=== PATIENT | female | born 1935 | race Caucasian/White ===

== ENCOUNTER 2016-08-07 11:40 | Inpatient (IN) | payer MEDICARE ==
[~2016-08-07] VITALS: Ht 160 cm; Wt 87.2 kg
[2016-08-07] MEDS ORDERED: PERCOCET 5MG/325MG TAB PO PRN (13:30)
[2016-08-07] MEDS ORDERED: ACETAMINOPHEN TAB 650MG DOSE (2X325MG) PO PRN (13:30)
[2016-08-07] MEDS ORDERED: ONDANSETRON 4MG/2ML VIAL (J2405) IV PRN (13:30)
[2016-08-07] MEDS ORDERED: BISACODYL 10 MG SUPP PR PRN (13:30)
[2016-08-07] MEDS ORDERED: LEVALBUTEROL 1.25 MG/0.5 ML CONCENTRATE NEB NEB PRN (13:30)
[2016-08-07 16:42] VITALS: BP 140/90
[2016-08-07 17:06] LABS: BASO % 0.3 % (0.0-1.0); EOS # 0.2 K/mm3 (0.0-0.50); EOS % 1.4 % (0.0-3.0); LARGE UNSTAINED CELL # 0.1 K/mm3 (0.0-0.4); LARGE UNSTAINED CELL % 0.9 % (0.0-4.0); LYMPH % 28.2 % (24.0-44.0); MEAN CORPUSCULAR HEMOGLOBIN 31.5 pg (27.0-33.0); MEAN CORPUSCULAR HGB CONC 33.2 g/dl (32.0-36.5); MEAN CORPUSCULAR VOLUME 94.9 fl (80.0-96.0); MONO # 0.3 K/mm3 (0.0-0.8); MONO % 2.4 % (0.0-5.0); NEUTROPHILS % 66.7 % (36.0-66.0); PLATELET COUNT, AUTOMATED 348 k/mm3 (150-450); RED CELL DISTRIBUTION WIDTH 12.5 % (11.5-14.5); WHITE BLOOD COUNT 10.5 K/mm3 (4.0-10.0)
[2016-08-07] MEDS ORDERED: FLUMAZENIL 0.5 MG/5 ML VIAL As Ordered ONE (17:06)
[2016-08-07] MEDS ORDERED: LIDOCAINE 1% MDV 20ML VIAL As Ordered ONE (17:07)
[2016-08-07] MEDS ORDERED: MIDAZOLAM INJ 2 MG/2 ML VIAL (J2250) As Ordered ONE (17:08)
[2016-08-07 17:19] LABS: ANION GAP 9 MEQ/L (8-16); BLOOD UREA NITROGEN 19 MG/DL (7-18); CARBON DIOXIDE LEVEL 26 MEQ/L (21-32); CHLORIDE LEVEL 103 MEQ/L (98-107); CREATININE FOR GFR 0.87 MG/DL (0.55-1.02); GLOMERULAR FILTRATION RATE > 60.0 (>39); GLUCOSE, FASTING 117 MG/DL (83-110); POTASSIUM SERUM 4.2 MEQ/L (3.5-5.1); SODIUM LEVEL 138 MEQ/L (136-145)
[2016-08-07 18:10] LABS: ABG BASE EXCESS 1.4 (-2.0-2.0); ABG HCO3 24.3 MEQ/L (22.0-26.0); ABG PARTIAL PRESSURE CO2 33.5 mmHg (35.0-45.0); ABG PARTIAL PRESSURE O2 65.2 mmHg (75.0-100.0); ABG STANDARD HCO3 25.6 MEQ/L (22.0-26.0); ABG TOTAL CO2 25.4 MEQ/L (23.0-31.0); ABG pH (ARTERIAL) 7.479 UNITS (7.350-7.450)
[2016-08-07] MEDS: PANTOPRAZOLE 40MG TAB (PROTONIX) PO SCH (18:27)
[2016-08-07] MEDS: MOM 30ML SUSPENSION UDC PO SCH (18:27)
[2016-08-07] MEDS ORDERED: LISI40TAB PO (18:58)
[2016-08-07 19:13] VITALS: BP 135/85
--- NOTE | 2016-08-07 19:16 | HPE ---
DATE OF ADMISSION: 08/07/2016 The patient is accepted in transfer from [facility] at the request at Dr. Quinton Grajeda for a continued air leak after a spontaenous pneumothorax. HISTORY OF PRESENT ILLNESS: Patient is a 80-year-old white female who on 07/31 or had a sudden onset of paroxysmal coughing spell which then resulted in sudden shortness of breath and chest discomfort. She presented to [facility] where she was a tension pneumothorax and a chest tube was placed by the physician certified pathology assistant. I do not have the records from [facility] so I can not comment on whether it was a true tension pneumothorax with hypertension or not. She however was then transferred to [facility] where the chest tube either fell out, but for some reason needed a replacement perhaps secondary to misplacement. A posterior lateral chest tube was then placed and aimed toward the apex. Shortly after replacing the chest tube the patient reports swelling up. She had an evidently severe subcutaneous emphysema. Dr. Rae, of Pulmonology was called and referred the phone call to me and in speaking to Dr. Grajeda, he related to me the above events. The chest tube has been continued on suction and while the subcutaneous emphysema has gotten somewhat better she still has a continued air leak. Prior to the coughing paroxysm, she had some shortness of breath walking up a long hill but was able to do all of the activities of daily living. She has gained weight rather than lost weight. There has been no chest pain or chest discomfort prior to the pneumothorax. There has been no fevers, chills, or sweats but she does complain sometimes of night sweats occasionally. She says that she has nose bleeds sometimes once or twice a week for quite a number or years. They spontaneously stop. She is no on oxygen at home. She did have a couple of nose bleeds while at [facility]. There is no hemoptysis and with her cough she has no sputum production. She does have a [id number] history of smoking, having quit in 1991 but smoked 2 packs a day for 30 years, Pall [employer] cigarettes. She has had diarrhea also for most of her life. It is brought on it sounds like with eggs but not with bread of carbohydrates. There is no melena or hematochezia or nausea or vomiting. PAST MEDICAL ILLNESSES: Hypertension for which she takes lisinopril. PAST SURGICAL HISTORY: Remote cholecystectomy, appendectomy and hysterectomy. MEDICATIONS AT HOME: Include: - lisinopril 10 mg every day TRAVEL HISTORY: She has traveled to [place] but not to the [facility] [place] and there is no other foreign travel. EXPOSURES: She has three cats at home. No dogs or birds. There is no tuberculosis exposure that she knows of. OCCUPATIONAL HISTORY: She used to work for [employer] in the [email or web address]. No asbestos exposure. HABITS: As noted above, 2 packs per day, Pall [employer] for 30 years, quit in 1991. Drinks 2-3 beers every Friday. No elicit drugs. FAMILY HISTORY: Noncontributory at this point and time. To be determined at a later time. REVIEW OF SYSTEMS: CONSTITUTIONAL: See history of present illness, without fevers, chills, or sweats but does have occasional night sweats. No weight loss but rather weight gain. EYES: Without diplopia or transient binocular blindness without prior jaundice. NOSE: With the above history of epistaxis. MOUTH: Has partial plates. PULMONARY: See history of present illness. CARDIAC: See history of present illness. Without orthopnea or paroxysmal nocturnal dyspnea, prior myocardial infarction without peripheral edema or intermittent claudication. GASTROINTESTINAL (GI): See history of present illness. Without nausea, vomiting, but with diarrhea as described above. Without constipation, melena, hematochezia, hematemesis or abdominal pain. ENDOCRINE: With diabetes, without thyroid disease. NEUROLOGIC: Without paralysis, paraesthesias, or prior seizures. LYMPHATICS: Without lumps, bumps that she has noticed in her neck, groin, or axilla. HEMATOLOGIC: Without prolonged bleeding times. PSYCHIATRIC: Without pathologic anxieties, depression or psychosis. PHYSICAL EXAMINATION: GENERAL: A well developed, overweight, white female in no acute distress. She has a chest tube in place and it is connected to a Pleur-evac at 27 cm of suction from [employer]. VITAL SIGNS: Temperature is 97.8, pulse 104 in sinus rhythm, respiratory rate of 19 without the use of accessory muscles who is 93% saturated on room air. Her blood pressure of 140/90. EYES: Pupils equal, round and reactive to light. Extraocular movement intact. Sclera anicteric. NOSE: Without deformity. MOUTH: Shows her mucous membranes to be pink and moist. Lips and commissures without lesions. There is no thrush. Partial plates are in place. Teeth are in fairly good repair. NECK: Shows subcutaneous emphysema but up to and past the angle of the jaw and into the facial mandible. There is no jugular venous distention. No is no thyromegaly or lymphadenopathy that I can feel through the subcutaneous emphysema. She has 2+ carotid upstrokes and there is no carotid bruits. LUNGS: Show equal breath sounds on either side. I do her a preponderance of crackles of subcutaneous emphysema but beneath those there are some squeaks on the right side from the chest tube. I heart no underlying adventitious sounds. Percussion was hyperresonant on both side, more on the right than the left from the subcutaneous emphysema. CARDIAC: Without murmurs, clicks, gallops, or rubs. I can not feel her point maximum intensity (PMI). S1 and S2 are normal. ABDOMEN: Soft, nontender. Bowel sounds are positive. There is no hepatomegaly. No CVA tenderness. EXTREMITIES: Show no pretibial edema. No calf tenderness. There is differential swelling of the two upper extremities secondary to subcutaneous emphysema but there is no edema. She has rings on both fingers and the rings move freely. LYMPHATICS: Without supraclavicular or infraclavicular cervical or axillary lymphadenopathy. NEURO: Shows II through XII intact. Gross motor and gross sensation intact. Gait is not tested. PSYCHIATRIC: Shows her to be awake and alert, oriented times three with appropriate mood and affect and conversational. INVESTIGATIONS: Her white count is 10.5 with a hemoglobin and hematocrit report respectively. Platelet count 348 and her differential shows 66 neurtophils, 28% lymphocytes, 2% monocytes. There are no immature forms or toxic grandulations. Her blood gases are pending. Electrolytes are normal with a BUN and creatinine of 19 and 0.87. Glucose 11 and calcium 9.0. I did have a chest CT done immediately upon arrival. It shows massive amount of subcutaneous emphysema which is certainly evident on physical examination. The lung parenchyma is surprisingly intact. I do not see a lot of emphysematous changes. On the coronal views there does look to be a bleb at the very apex of the cupula. The chest tube is in actually fairly good position but does not get all the way up to the cupula. It does not look to be a parenchymal tube. It enters through the 5th intercostal space over the 6th rib. There is a small air space best seen on the sagittal view at the cupula. It is notable on the sagittal view that she has more emphysematous changes than I see on the transverse view. On the sagittal view, the small air space at the cupula is clearly seen. The chest tube does not get up into that air space. The chest tube does seem to be ending at the tissue at the first intercostal space. It does look like there is a small maybe hematoma at the end of the chest tube although that is a very equivocal finding. There also is an unexplained opacity on the sagittal film which is probably just mediastinal tissue with mediastinal air. Her chest x-ray is still pending as her blood gases. IMPRESSION: 1. Spontaneous pneumothorax. 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 3. Mild emphysematous changes. 4. Hypertension. 5. Alveolar pleural fistula. PLAN AND DISCUSSION: I will replace the chest drainage system from [place] and put her on a Pleur-evac that I can turn up to 40 cm of suction. We will keep her on suction for the next couple of days to see if I can get the air leak to stop. She may need another anterior chest tube right into the cupula. At the end of the day the worst case scenario is that I will have to undertake a bleb resection with a pleurodesis. I explained to the patient that I have used my last talc canister and there is a national backlog and shortage of talc. I may need to use doxycycline or mechanical pleurodesis. She is having very little pain at the chest tube insertion site and I will not place her on Toradol at this point and time.
--- NOTE | 2016-08-07 19:32 | REP ---
CT CHEST WITHOUT CONTRAST: HISTORY: Pneumothorax. Diffuse subcutaneous emphysema is present through the thorax. There is pneumomediastinum. Patchy density is present in the lingula and left lower lobe consistent with atelectasis or infiltrate. The right lung is clear. A chest tube is present in the right hemithorax. There is no pneumothorax. Atherosclerotic calcification is present in the thoracic aorta. 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 Degenerative change is present in the thoracic spine. IMPRESSION: 1. There is diffuse subcutaneous emphysema throughout the thorax. 2. Pneumomediastinum. 3. Lingular and left lower lobe atelectasis or infiltrate. 4. A right chest tube is present. There is no pneumothorax. Signed by Niraj Nielson MD 08/07/2016 07:40 P
[2016-08-07] MEDS: DOCUSATE SODIUM 100 MG CAP PO SCH (20:12)
[2016-08-07] MEDS: HEPARIN SOD (PORCINE) 5000 UNITS/ML VIAL SC SCH (20:13)
[2016-08-07] MEDS: LEVALBUTEROL 1.25 MG/0.5 ML CONCENTRATE NEB NEB SCH (20:34)
[2016-08-07 23:00] VITALS: BP 79/53
[2016-08-07 23:25] VITALS: BP 114/63
[2016-08-07] MEDS: NORCO, ANEXSIA 5/325MG TABLET (HYDROcodone/ACETAMINOPHEN) PO PRN (23:30)
[2016-08-08] MEDS: LEVALBUTEROL 1.25 MG/0.5 ML CONCENTRATE NEB NEB SCH ×4 (01:51→21:33)
[2016-08-08] MEDS: NORCO, ANEXSIA 5/325MG TABLET (HYDROcodone/ACETAMINOPHEN) PO PRN (03:35)
[2016-08-08 04:00] VITALS: BP 123/77
[2016-08-08 06:12] LABS: BASO % 0.2 % (0.0-1.0); EOS # 0.2 K/mm3 (0.0-0.50); EOS % 1.9 % (0.0-3.0); LARGE UNSTAINED CELL # 0.1 K/mm3 (0.0-0.4); LARGE UNSTAINED CELL % 1.4 % (0.0-4.0); LYMPH # 3.2 K/mm3 (1.5-4.5); LYMPH % 31.5 % (24.0-44.0); MEAN CORPUSCULAR HEMOGLOBIN 31.3 pg (27.0-33.0); MEAN CORPUSCULAR HGB CONC 32.8 g/dl (32.0-36.5); MEAN CORPUSCULAR VOLUME 95.6 fl (80.0-96.0); MONO # 0.3 K/mm3 (0.0-0.8); MONO % 2.7 % (0.0-5.0); NEUTROPHILS # 6.4 K/mm3 (1.8-7.7); NEUTROPHILS % 62.4 % (36.0-66.0); PLATELET COUNT, AUTOMATED 285 k/mm3 (150-450); RED CELL DISTRIBUTION WIDTH 12.6 % (11.5-14.5); WHITE BLOOD COUNT 10.2 K/mm3 (4.0-10.0)
[2016-08-08 06:13] LABS: ANION GAP 9 MEQ/L (8-16); BLOOD UREA NITROGEN 21 MG/DL (7-18); CALCIUM LEVEL 8.4 MG/DL (8.8-10.2); CARBON DIOXIDE LEVEL 27 MEQ/L (21-32); CHLORIDE LEVEL 104 MEQ/L (98-107); CREATININE FOR GFR 0.78 MG/DL (0.55-1.02); GLOMERULAR FILTRATION RATE > 60.0 (>39); GLUCOSE, FASTING 103 MG/DL (83-110); POTASSIUM SERUM 4.1 MEQ/L (3.5-5.1); SODIUM LEVEL 140 MEQ/L (136-145)
[2016-08-08 07:50] VITALS: BP 128/62
[2016-08-08] MEDS: HEPARIN SOD (PORCINE) 5000 UNITS/ML VIAL SC SCH ×2 (08:13→20:23)
[2016-08-08] MEDS: PANTOPRAZOLE 40MG TAB (PROTONIX) PO SCH (08:14)
[2016-08-08] MEDS: PERCOCET 5MG/325MG TAB PO PRN ×2 (08:14→20:24)
[2016-08-08] MEDS: LISINOPRIL 40 MG TAB PO SCH (08:14)
[2016-08-08] MEDS: MOM 30ML SUSPENSION UDC PO SCH (08:15)
[2016-08-08] MEDS: DOCUSATE SODIUM 100 MG CAP PO SCH ×2 (08:15→20:22)
--- NOTE | 2016-08-08 08:45 | REP ---
CHEST, TWO VIEWS: HISTORY: Pneumothorax. Diffuse subcutaneous emphysema is present in the thorax. Increased density is present in the left lower lobe consistent with atelectasis or infiltrate. A chest tube is present in the right hemithorax. There is no definite pneumothorax. The heart is normal in size. The bony structure is intact. IMPRESSION: 1. There is diffuse subcutaneous emphysema in the thorax. 2. Left lower lobe atelectasis or infiltrate. 3. A chest tube is present in the right hemithorax. There is no definite pneumothorax. Signed by Niraj Nielson MD 08/08/2016 08:51 A
[2016-08-08 12:00] VITALS: BP 115/52
[2016-08-08 16:00] VITALS: BP 120/68
--- NOTE | 2016-08-08 16:43 | IPN ---
DATE: 08/08/2016 Ms. Izaguirre still has a considerable air leak, keeping her on 40 cm of suction. She still has her subcutaneous emphysema. It is clear that this air leak has been going on for over a week and is not going to stop. Please see discussion below. Her vital signs show a maximum temperature (T max) of 98.7 with a heart rate that ranges between 70 and 104 and is sinus rhythm, a respiratory rate of 18 to 16 without the use of accessory muscles who is 96% saturated on room air and whose blood pressure is ranging between 128/62 to 115/52. Her intake and output the past 24 hours has been recorded as 1680 in and 1305 out for a positivity of 375 mL. She has put out 30 mL from the chest tube. PHYSICAL EXAMINATION: I hear the crackles of subcutaneous emphysema over her right chest. Underneath I hear normal vesicular sounds without wheezes, rhonchi or rales. I do hear the squeaking of the chest tube on 40 cm of suction. Percussion note is full to the diaphragm. It is hyperresonant, particularly on the right side. Cardiac exam is without murmurs, clicks, gallops or rubs. I cannot feel her point of maximum impulse (PMI). S1, S2 are normal. Abdomen is soft and nontender. Bowel sounds are positive. There is no hepatomegaly. No costovertebral angle tenderness. Extremities show no pretibial edema. No calf tenderness. No differential swelling of the upper extremities. Skin is warm, dry and perfused without cyanosis or mottling, including that of the nail beds and the knees. Neck is supple. There is no jugular venous distention, no subcutaneous emphysema. Trachea is midline. Mouth shows her mucous membranes to be pink and moist. Lips and commissures without lesions. There is no thrush. Eyes show her pupils to be equal and reactive. Extraocular motions intact. Sclerae anicteric. Neurologic shows II-XII intact along with gross motor and gross sensation intact. Gait is not tested. Psychiatric shows her to be awake and alert, oriented times three with appropriate mood and affect and conversational. Her white count today is 10.2, unchanged from yesterday with a hemoglobin and hematocrit of 13 and 39.7, slightly down from 14.8 and 44.4 yesterday. This can be explained by mild hemodilution. Platelet count is 285 and differential shows 62% neutrophils, 31% lymphocytes, 2% monocytes. There are no immature forms. No toxic granulations. Electrolytes are normal with a BUN and creatinine of 21 and 0.78, a glucose of 103 and a calcium of 8.4. Her chest x-ray today shows the lung fully expanded to the chest wall with dissipating subcutaneous emphysema. She has increased colonic gas beneath the diaphragm on the right side. Trachea is in the midline as is the mediastinum. Chest tube looks to be in place anteriorly. IMPRESSION: 1. Spontaneous pneumothorax. 2. Bleb disease. 3. Alveolar pleural fistula. 4. Mild emphysematous changes. 5. Hypertension. PLAN AND DISCUSSION: We really are between a rock and a hard place at this point in time. There is no talc available anywhere in the country. I even, in fact, called the door frame builder today and they returned my call. They have explained that the canister that used to deliver the talc is no longer manufactured by their prior supplier and the new canister has to be approved by the Food and Drug Administration, which is taking an extraordinary amount of time. We are, therefore, stuck with doing it the old-fashioned way with doxycycline, and I will combine that with a mechanical talc pleurodesis. We will undertake a wedge resection of the upper lobe where I think that she has her open bleb. Plan to take her to the operating room tomorrow. This will be more than a small thoracoscopic procedure and may need some extra additional incisions to place the abrasive sponges in to scarify the pleura. I have explained the risks and benefits and the patient understands. She understands the fact that we cannot get any talc.
[2016-08-08 16:45] LABS: INR 0.91
[2016-08-08 20:17] VITALS: BP 131/75
[2016-08-08 23:17] VITALS: BP 124/63
[2016-08-09] VITALS (7 sets, daily range): BP systolic 98–132; BP diastolic 49–79
[2016-08-09] MEDS: PERCOCET 5MG/325MG TAB PO PRN (00:56)
[2016-08-09] MEDS: LEVALBUTEROL 1.25 MG/0.5 ML CONCENTRATE NEB NEB SCH ×4 (02:00→20:02)
[2016-08-09 05:39] LABS: BASO % 0.2 % (0.0-1.0); EOS # 0.2 K/mm3 (0.0-0.50); EOS % 2.5 % (0.0-3.0); LARGE UNSTAINED CELL # 0.1 K/mm3 (0.0-0.4); LARGE UNSTAINED CELL % 1.1 % (0.0-4.0); LYMPH % 35.5 % (24.0-44.0); MEAN CORPUSCULAR HGB CONC 32.8 g/dl (32.0-36.5); MEAN CORPUSCULAR VOLUME 94.4 fl (80.0-96.0); MONO # 0.3 K/mm3 (0.0-0.8); MONO % 3.3 % (0.0-5.0); NEUTROPHILS # 4.8 K/mm3 (1.8-7.7); NEUTROPHILS % 57.5 % (36.0-66.0); PLATELET COUNT, AUTOMATED 299 k/mm3 (150-450); RED CELL DISTRIBUTION WIDTH 12.7 % (11.5-14.5); WHITE BLOOD COUNT 8.3 K/mm3 (4.0-10.0)
[2016-08-09 05:56] LABS: CALCIUM LEVEL 8.4 MG/DL (8.8-10.2); CREATININE FOR GFR 0.96 MG/DL (0.55-1.02); GLOMERULAR FILTRATION RATE 59.7 (>39); POTASSIUM SERUM 4.4 MEQ/L (3.5-5.1)
[2016-08-09] MEDS ORDERED: VANCOMYCIN HCL 1,000 MG, VIAL MATE ADAPTER 1 EACH in D5W 250 ML IV SCH (06:00)
[2016-08-09] MEDS: HEPARIN SOD (PORCINE) 5000 UNITS/ML VIAL SC SCH ×2 (07:57→22:02)
[2016-08-09] MEDS: DOCUSATE SODIUM 100 MG CAP PO SCH ×2 (07:59→22:02)
[2016-08-09] MEDS: MOM 30ML SUSPENSION UDC PO SCH (08:00)
[2016-08-09] MEDS: PANTOPRAZOLE 40MG TAB (PROTONIX) PO SCH (08:03)
[2016-08-09] MEDS: LISINOPRIL 40 MG TAB PO SCH (08:04)
[2016-08-09] MEDS ORDERED: fentaNYL 100 MCG/2 ML INJECTION (J3010) As Ordered ONE ×2 (11:54→15:08)
[2016-08-09] MEDS ORDERED: MIDAZOLAM INJ 2 MG/2 ML VIAL (J2250) As Ordered ONE ×2 (11:54→15:08)
[2016-08-09] MEDS ORDERED: BABY POWDER 120GM TOP ONE (12:00)
--- NOTE | 2016-08-09 12:14 | REP ---
TWO VIEW CHEST: Two views of the chest are performed. Right chest tube is again noted. I do not see a large pneumothorax. There is extensive subcutaneous emphysema in the chest live, right greater than left. Cardiomediastinal silhouette is unchanged. Interstitial opacities in each lung base are stable. IMPRESSION: Stable exam. Signed by Sumeet Ocasio MD 08/09/2016 05:18 P
[2016-08-09] MEDS ORDERED: STERILE TALC 5 GM XX ONE (13:00)
[2016-08-09] MEDS: MIDAZOLAM INJ 2 MG/2 ML VIAL (J2250) IV PRN ×2 (13:03→13:05)
[2016-08-09] MEDS ORDERED: ONDANSETRON 4MG/2ML VIAL (J2405) IV PRN ×3 (13:30→17:00)
[2016-08-09] MEDS ORDERED: WALLBOXKEY XX PRN (13:30)
[2016-08-09] MEDS ORDERED: NALOXONE INJ 0.4 MG/1 ML VIAL (J2310) IV PRN (13:30)
[2016-08-09] MEDS ORDERED: FENTANYL/BUPIVACAINE/NACL BAG 250 ML EPIDURAL SCH (13:30)
[2016-08-09] MEDS ORDERED: EPIDURAL/PCA KEYS XX PRN (13:30)
[2016-08-09] MEDS ORDERED: fentaNYL 100 MCG/2 ML INJECTION (J3010) IV PRN ×2 (13:30→17:00)
[2016-08-09] MEDS ORDERED: METOCLOPRAMIDE INJ 10MG/2ML VIAL (J2765) IV PRN (13:30)
[2016-08-09] MEDS ORDERED: BUPIVACAINE HCL 0.5% 10 ML VIAL As Ordered ONE (13:57)
[2016-08-09] MEDS ORDERED: MUPIROCIN 2% OINT 22 GM TUBE As Ordered ONE (13:57)
[2016-08-09] MEDS ORDERED: LIDOCAINE 1% MDV INJ 50 ML VIAL As Ordered ONE (13:58)
[2016-08-09] MEDS ORDERED: BUPIVACAINE HCL 0.25% 30 ML VIAL As Ordered ONE ×2 (13:58→15:30)
[2016-08-09] MEDS ORDERED: BUPIVACAINE LIPOSOME/PF 1.3% 20 ML VIAL (13.3MG/ML)(EXPAREL) As Ordered ONE (13:58)
[2016-08-09] MEDS ORDERED: VANCOMYCIN 1000 MG/20 ML VIAL (J3370) As Ordered ONE (14:03)
[2016-08-09] MEDS ORDERED: PROPOFOL 500 MG/50 ML VIAL As Ordered ONE (15:08)
[2016-08-09 15:24] LABS: ABG BASE EXCESS -2.6 (-2.0-2.0); ABG DEVICE MECHAN. VENT; ABG HCO3 23.5 MEQ/L (22.0-26.0); ABG PARTIAL PRESSURE CO2 45.3 mmHg (35.0-45.0); ABG PARTIAL PRESSURE O2 227.7 mmHg (75.0-100.0); ABG STANDARD HCO3 22.4 MEQ/L (22.0-26.0); ABG TOTAL CO2 24.8 MEQ/L (23.0-31.0); ABG pH (ARTERIAL) 7.332 UNITS (7.350-7.450)
[2016-08-09] MEDS ORDERED: ePHEDrine SULFATE 25 MG/5 ML(5MG/ML) SYRINGE As Ordered ONE (15:30)
[2016-08-09] MEDS ORDERED: ROCURONIUM BROMIDE 50 MG/5 ML VIAL As Ordered ONE ×2 (15:30→15:31)
[2016-08-09] MEDS ORDERED: METOCLOPRAMIDE INJ 10MG/2ML VIAL (J2765) As Ordered ONE (15:31)
[2016-08-09] MEDS ORDERED: dexameTHASONE 4 MG/ML 1ML VIAL (J1100) As Ordered ONE (15:31)
[2016-08-09] MEDS ORDERED: LIDOCAINE 2% INJ 100 MG/5 ML SDV (FOR ANES.) As Ordered ONE (15:31)
[2016-08-09] MEDS ORDERED: ONDANSETRON 4MG/2ML VIAL (J2405) As Ordered ONE (16:24)
[2016-08-09] MEDS ORDERED: KCL 20MEQ IN D5/NS 1000ML 1,000 ML IV SCH (16:27)
[2016-08-09] MEDS ORDERED: ACETAMINOPHEN TAB 650MG DOSE (2X325MG) PO PRN (16:30)
[2016-08-09] MEDS ORDERED: BISACODYL 10 MG SUPP PR PRN (16:30)
[2016-08-09] MEDS ORDERED: PERCOCET 5MG/325MG TAB PO PRN ×3 (16:30→17:00)
[2016-08-09] MEDS ORDERED: NORCO, ANEXSIA 5/325MG TABLET (HYDROcodone/ACETAMINOPHEN) PO PRN (16:30)
[2016-08-09] MEDS ORDERED: LEVALBUTEROL 1.25 MG/0.5 ML CONCENTRATE NEB NEB PRN (16:30)
[2016-08-09] MEDS ORDERED: NEOSTIGMINE 1MG/ML 5 ML SYRINGE (J2710) As Ordered ONE (16:37)
[2016-08-09] MEDS ORDERED: GLYCOPYRROLATE INJ 0.2 MG/ML 2 ML VIAL As Ordered ONE (16:37)
[2016-08-09] MEDS ORDERED: MORPHINE 2 MG/ML 1ML SYRINGE IV PRN (17:00)
[2016-08-09] MEDS ORDERED: LR 1,000 ML IV SCH (17:00)
[2016-08-09 17:11] LABS: ABG BASE EXCESS -3.7 (-2.0-2.0); ABG HCO3 22.8 MEQ/L (22.0-26.0); ABG PARTIAL PRESSURE CO2 46.4 mmHg (35.0-45.0); ABG PARTIAL PRESSURE O2 134.3 mmHg (75.0-100.0); ABG STANDARD HCO3 21.5 MEQ/L (22.0-26.0); ABG TOTAL CO2 24.2 MEQ/L (23.0-31.0); ABG pH (ARTERIAL) 7.309 UNITS (7.350-7.450)
[2016-08-09 17:20] LABS: BASO % 0.2 % (0.0-1.0); EOS # 0.2 K/mm3 (0.0-0.50); EOS % 1.3 % (0.0-3.0); LARGE UNSTAINED CELL # 0.1 K/mm3 (0.0-0.4); LARGE UNSTAINED CELL % 0.5 % (0.0-4.0); LYMPH # 2.5 K/mm3 (1.5-4.5); LYMPH % 16.5 % (24.0-44.0); MEAN CORPUSCULAR HEMOGLOBIN 31.5 pg (27.0-33.0); MEAN CORPUSCULAR HGB CONC 32.3 g/dl (32.0-36.5); MEAN CORPUSCULAR VOLUME 97.5 fl (80.0-96.0); MONO # 0.3 K/mm3 (0.0-0.8); MONO % 1.8 % (0.0-5.0); NEUTROPHILS # 12.1 K/mm3 (1.8-7.7); NEUTROPHILS % 79.7 % (36.0-66.0); PLATELET COUNT, AUTOMATED 360 k/mm3 (150-450); RED CELL DISTRIBUTION WIDTH 12.5 % (11.5-14.5); WHITE BLOOD COUNT 15.2 K/mm3 (4.0-10.0)
[2016-08-09] MEDS: FENTANYL/BUPIVACAINE/NACL BAG 250 ML EPIDURAL SCH (17:30)
[2016-08-09] MEDS ORDERED: KCL 20MEQ IN D5/0.9%NACL 1000 ML As Ordered ONE (17:35)
[2016-08-09 17:44] LABS: CALCIUM LEVEL 8.1 MG/DL (8.8-10.2); CREATININE FOR GFR 1.09 MG/DL (0.55-1.02); GLOMERULAR FILTRATION RATE 51.5 (>39); POTASSIUM SERUM 4.6 MEQ/L (3.5-5.1)
[2016-08-09] MEDS ORDERED: KETOROLAC 30 MG/ML VIAL (J1885) IV SCH (18:00)
[2016-08-09] MEDS: diphenhydrAMINE INJ 50MG/ML VIAL (J1200) IV PRN (23:06)
[2016-08-10] VITALS (8 sets, daily range): BP systolic 88–113; BP diastolic 51–61
[2016-08-10] MEDS: LEVALBUTEROL 1.25 MG/0.5 ML CONCENTRATE NEB NEB SCH ×4 (02:00→19:59)
[2016-08-10 05:30] LABS: ABG BASE EXCESS -2.1 (-2.0-2.0); ABG HCO3 22.6 MEQ/L (22.0-26.0); ABG PARTIAL PRESSURE CO2 38.2 mmHg (35.0-45.0); ABG PARTIAL PRESSURE O2 70.6 mmHg (75.0-100.0); ABG STANDARD HCO3 22.7 MEQ/L (22.0-26.0); ABG TOTAL CO2 23.7 MEQ/L (23.0-31.0); ABG pH (ARTERIAL) 7.389 UNITS (7.350-7.450)
[2016-08-10 06:12] LABS: BASO % 0.1 % (0.0-1.0); EOS # 0.1 K/mm3 (0.0-0.50); EOS % 1.1 % (0.0-3.0); LARGE UNSTAINED CELL # 0.1 K/mm3 (0.0-0.4); LARGE UNSTAINED CELL % 0.5 % (0.0-4.0); LYMPH # 1.6 K/mm3 (1.5-4.5); MEAN CORPUSCULAR HEMOGLOBIN 31.6 pg (27.0-33.0); MEAN CORPUSCULAR HGB CONC 33.1 g/dl (32.0-36.5); MEAN CORPUSCULAR VOLUME 95.5 fl (80.0-96.0); MONO # 0.4 K/mm3 (0.0-0.8); MONO % 2.9 % (0.0-5.0); NEUTROPHILS # 10.9 K/mm3 (1.8-7.7); NEUTROPHILS % 83.5 % (36.0-66.0); RED CELL DISTRIBUTION WIDTH 12.6 % (11.5-14.5); WHITE BLOOD COUNT 13.1 K/mm3 (4.0-10.0)
[2016-08-10 06:19] LABS: CALCIUM LEVEL 7.7 MG/DL (8.8-10.2); CREATININE FOR GFR 1.06 MG/DL (0.55-1.02); GLOMERULAR FILTRATION RATE 53.2 (>39); POTASSIUM SERUM 4.6 MEQ/L (3.5-5.1)
[2016-08-10 06:24] LABS: PLATELET COUNT, AUTOMATED 257 k/mm3 (150-450)
[2016-08-10] MEDS: DOCUSATE SODIUM 100 MG CAP PO SCH ×3 (08:28→21:42)
[2016-08-10] MEDS: diphenhydrAMINE INJ 50MG/ML VIAL (J1200) IV PRN ×2 (08:28→19:55)
[2016-08-10] MEDS: PANTOPRAZOLE 40MG TAB (PROTONIX) PO SCH (08:28)
[2016-08-10] MEDS: MOM 30ML SUSPENSION UDC PO SCH (08:28)
[2016-08-10] MEDS: HEPARIN SOD (PORCINE) 5000 UNITS/ML VIAL SC SCH ×2 (08:28→21:12)
[2016-08-10] MEDS: LISINOPRIL 40 MG TAB PO SCH (08:33)
[2016-08-10] MEDS: PANTOPRAZOLE 40MG INJ (PROTONIX) (C9113) IV SCH (08:33)
[2016-08-10] MEDS ORDERED: KETOROLAC 30 MG/ML VIAL (J1885) As Ordered ONE (09:11)
[2016-08-10] MEDS: KETOROLAC 30 MG/ML VIAL (J1885) IV SCH ×3 (09:20→21:12)
--- NOTE | 2016-08-10 09:56 | RO ---
DATE OF PROCEDURE: 08/09/2016 PREPROCEDURE DIAGNOSIS: Alveolar pleural fistula. POSTPROCEDURE DIAGNOSIS: Alveolar pleural fistula. PROCEDURE: Right upper lobe wedge resection of ruptured bullous and talc pleurodesis using a talc slurry, bronchoscopy with bronchoalveolar lavage and five-level rib block. SURGEON: Dr. Eduardo Tobin GRAPE GROWER: ANESTHESIA: FINDINGS: Bronchoscopy revealed a normal branching tracheobronchial tree with copious amounts of secretions. These were suction aspirated and each bronchopulmonary segment was inspected. There were no endobronchial lesions seen. The video-assisted thoracoscopic surgery (VATS) procedure showed a ruptured bullous at the very top of the apex of the lung. It was clear that this was a bullous, and it was connected to the lung parenchyma itself and was not a remnant of chest tube exudate. This was a wedge resection to include this was undertaken. DESCRIPTION OF PROCEDURE: Under satisfactory general anesthesia and single lumen tube endotracheal intubation, bronchoscope was placed into the tracheobronchial tree with the above results. Each bronchopulmonary segment was thoroughly inspected. She had copious amounts of secretions, and these were cleared with bronchoalveolar lavage. The patient was then turned into the left lateral decubitus position and sterilely prepped and draped in the usual fashion. A thoracoscopy incision was made in the mid axillary line at around the 7th intercostal space. The lung was well away from the chest wall, and there were no adhesions. Inspection revealed the ruptured bullous at the very cupula of the lung. Plans were then made to do a wedge resection. Another 5 mm port was placed in order to manipulate the bullous and a 12 mm port was placed in the posterior axillary line for the stapler. By manipulating the lung, a generous portion of the upper apical segment could be removed with an Garey SALINAS stapler. The specimen was placed into an Endo Catch bag and removed through the 12 mm port incision. Because there was no aerosol talc available nationally, a slurry of talc and 250 mL of normal saline along with 25 mg of lidocaine were then instilled into the chest. It should be noted that just prior to instilling the talc slurry, the chest was again filled with water and the lung inflated and there was no air leak. The talc slurry was sloshed around the chest, and the lung was reinflated in order to push the slurry around to the lateral surface. Two chest tubes were placed, a #24 posterior superior tube and a #28 inferior tube in the costophrenic angle. The talc slurry was not removed and the chest tubes were clamped. Incisions were then closed with running #0 Vicryl suture for the muscular layers and #3-0 Vicryl suture for the subcutaneous tissue and #4-0 Monocryl for the skin. A five-level rib block consisting of Marcaine along with Exparel was injected and the incisions themselves were injected with the Exparel. The patient tolerated the procedure well and left the operating room in satisfactory condition for the recovery room after turning her from side to side in order to more evenly distribute the slurry.
--- NOTE | 2016-08-10 11:20 | REP ---
PORTABLE CHEST: HISTORY: Chest tube. COMPARISON: Earlier today. FINDINGS: Right-sided thoracotomy tube is unchanged. The technique utilized in obtaining the radiograph has magnified the cardiac silhouette and accentuated the interstitial markings. Extensive right-sided subcutaneous emphysema and more moderate left-sided subcutaneous emphysema, unchanged. Lung mckinley stable. Cardiomediastinal silhouette unchanged. Osseous structures, no change. IMPRESSION: No significant change. Signed by Bishnu Morales DO 08/10/2016 11:36 A
--- NOTE | 2016-08-10 14:35 | REP ---
CHEST, TWO VIEWS: HISTORY: Followup. COMPARISON: 08/09/2016 Right sided thoracotomy tube unchanged. Cardiomediastinal silhouette unchanged. New air density in the right lower lobe, etiology uncertain. Extensive subcutaneous emphysema, status quo. IMPRESSION: New possible subpleural right lower lobe air density. Correlate clinically. Unchanged right thoracotomy tubes. Unchanged extensive subcutaneous edema. Signed by Bishnu Morales DO 08/10/2016 02:49 P
--- NOTE | 2016-08-10 15:22 | IPN ---
DATE: 08/10/2016 This is the first postoperative day for Mrs. Izaguirre who has had a stable night of surgery. Her pain is being well controlled with the epidural. Her vital signs show a maximum temperature (T max) of 101.2 with a heart rate that ranges between 84 and 107 and is sinus rhythm, a respiratory rate that is constant at 18, who is 98% saturated on 2 liters nasal cannula and whose blood pressure is ranging between 98/54, 109/59. Her intake and output over the past 24 hours has been recorded as 1725 in and 1108 out for a positivity of 600 mL. She has put 108 mL out of the chest tube, and there is no air leak. She weighs 88.7 kg today compared to 84.8 kg yesterday. PHYSICAL EXAMINATION: She has equal breath sounds on either side. She still has the crackles of subcutaneous emphysema from her preoperative state. Percussion note is full to the diaphragm. Cardiac exam is without murmurs, clicks, gallops or rubs. I cannot feel her point of maximum impulse (PMI). S1, S2 are normal. Abdomen is soft and nontender. Bowel sounds are positive. There is no hepatomegaly. No costovertebral angle tenderness. Extremities show no pretibial edema. No calf tenderness. No differential swelling of the upper extremities. Skin is warm, dry and perfused without cyanosis or mottling, including that of the nail beds and the knees. Neck is supple. There is no jugular venous distention, no subcutaneous emphysema. Trachea is midline. Mouth shows her mucous membranes to be pink and moist. Lips and commissures without lesions. There is no thrush. Eyes show her pupils to be equal and reactive. Extraocular motions intact. Sclerae anicteric. Neurologic shows II-XII intact along with gross motor and gross sensation intact. Gait is not tested. Psychiatric shows her to be awake and alert, oriented times three with appropriate mood and affect and conversational. Her white count is 13.1 with a hemoglobin and hematocrit of 12.3 and 37.2 and a platelet count of 257 and stable. Differential shows 83% neutrophils, 12% lymphocytes, 3% monocytes. There are no immature forms. No toxic granulations. Her electrolytes are normal with a BUN and creatinine of 20 and 1.06, a glucose of 118, calcium was 7.7. Blood gas this morning shows a pH of 7.38, pCO2 of 38, a pO2 of 70 with a base excess of -21. Her chest x-ray today shows the lung fully expanded to the chest wall. She has the overlying subcutaneous emphysema. Chest tubes are in good place. I do not see any infiltrates posteriorly, although the lung mckinley are partially obscured by the overlying subcutaneous emphysema. IMPRESSION: 1. Spontaneous pneumothorax. 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 4. Mild emphysematous changes. 5. Hypertension. PLAN AND DISCUSSION: I am very gratified that the alveolar pleural fistula has now resolved with the upper lobe wedge resection. I have given the patient her intraoperative pictures. I have again congratulated her on smoking cessation for the past number of years and encouraged her to continue to do so. I will keep this chest tubes on suction. I am also gratified that she is spiking a temperature, indicating that there has been an inflammatory response to the talc.
[2016-08-10] MEDS: FENTANYL/BUPIVACAINE/NACL BAG 250 ML EPIDURAL SCH (17:34)
[2016-08-10] MEDS ORDERED: KETOROLAC 30 MG/ML VIAL (J1885) IV SCH (20:00)
[2016-08-11] VITALS (7 sets, daily range): BP systolic 96–120; BP diastolic 51–64
[2016-08-11] MEDS: LEVALBUTEROL 1.25 MG/0.5 ML CONCENTRATE NEB NEB SCH ×4 (02:00→19:37)
[2016-08-11] MEDS: KETOROLAC 30 MG/ML VIAL (J1885) IV SCH ×4 (03:34→21:57)
[2016-08-11 05:52] LABS: BASO % 0.1 % (0.0-1.0); EOS # 0.5 K/mm3 (0.0-0.50); EOS % 3.6 % (0.0-3.0); LARGE UNSTAINED CELL # 0.1 K/mm3 (0.0-0.4); LARGE UNSTAINED CELL % 0.8 % (0.0-4.0); LYMPH # 2.3 K/mm3 (1.5-4.5); LYMPH % 16.9 % (24.0-44.0); MEAN CORPUSCULAR HEMOGLOBIN 31.3 pg (27.0-33.0); MEAN CORPUSCULAR VOLUME 98.1 fl (80.0-96.0); MONO # 0.6 K/mm3 (0.0-0.8); MONO % 4.1 % (0.0-5.0); NEUTROPHILS # 10.3 K/mm3 (1.8-7.7); NEUTROPHILS % 74.5 % (36.0-66.0); PLATELET COUNT, AUTOMATED 216 k/mm3 (150-450); RED CELL DISTRIBUTION WIDTH 12.6 % (11.5-14.5); WHITE BLOOD COUNT 13.9 K/mm3 (4.0-10.0)
[2016-08-11 06:08] LABS: ANION GAP 7 MEQ/L (8-16); BLOOD UREA NITROGEN 21 MG/DL (7-18); CALCIUM LEVEL 8.2 MG/DL (8.8-10.2); CARBON DIOXIDE LEVEL 25 MEQ/L (21-32); CHLORIDE LEVEL 107 MEQ/L (98-107); CREATININE FOR GFR 0.94 MG/DL (0.55-1.02); GLOMERULAR FILTRATION RATE > 60.0 (>39); GLUCOSE, FASTING 109 MG/DL (83-110); POTASSIUM SERUM 4.5 MEQ/L (3.5-5.1); SODIUM LEVEL 139 MEQ/L (136-145)
[2016-08-11] MEDS: PANTOPRAZOLE 40MG INJ (PROTONIX) (C9113) IV SCH (08:15)
[2016-08-11] MEDS: HEPARIN SOD (PORCINE) 5000 UNITS/ML VIAL SC SCH ×2 (08:15→21:57)
[2016-08-11] MEDS: DOCUSATE SODIUM 100 MG CAP PO SCH ×2 (09:00→21:57)
[2016-08-11] MEDS: MOM 30ML SUSPENSION UDC PO SCH (09:00)
[2016-08-11] MEDS: LISINOPRIL 40 MG TAB PO SCH (09:00)
--- NOTE | 2016-08-11 10:07 | REP ---
CHEST, TWO VIEWS: HISTORY: Followup. COMPARISON: Yesterday. The right-sided thoracotomy tubes are unchanged. The air density seen beneath the diaphragmatic surface of the right lung has gotten smaller and is now seen to be consistent with gas within the enteric system. The lung mckinley are unchanged. There is no evidence of recurrent pneumothorax. There are no new abnormal opacities. Scattered bibasilar opacities persist, status quo. There is cardiomegaly, unchanged. There is no change in the osseous structures. IMPRESSION: No significant change. Signed by Bishnu Morales DO 08/11/2016 10:24 A
[2016-08-11] MEDS: FENTANYL/BUPIVACAINE/NACL BAG 250 ML EPIDURAL SCH (16:16)
[2016-08-12] MEDS: LEVALBUTEROL 1.25 MG/0.5 ML CONCENTRATE NEB NEB SCH ×4 (02:00→22:03)
[2016-08-12 04:04] VITALS: BP 131/61
[2016-08-12] MEDS: KETOROLAC 30 MG/ML VIAL (J1885) IV SCH ×4 (04:49→21:47)
[2016-08-12 05:21] LABS: BASO % 0.2 % (0.0-1.0); EOS # 0.6 K/mm3 (0.0-0.50); EOS % 5.1 % (0.0-3.0); LARGE UNSTAINED CELL # 0.1 K/mm3 (0.0-0.4); LARGE UNSTAINED CELL % 1.1 % (0.0-4.0); LYMPH # 3.2 K/mm3 (1.5-4.5); LYMPH % 29.1 % (24.0-44.0); MEAN CORPUSCULAR HEMOGLOBIN 31.1 pg (27.0-33.0); MEAN CORPUSCULAR HGB CONC 32.1 g/dl (32.0-36.5); MEAN CORPUSCULAR VOLUME 96.9 fl (80.0-96.0); MONO # 0.3 K/mm3 (0.0-0.8); MONO % 3.1 % (0.0-5.0); NEUTROPHILS # 6.8 K/mm3 (1.8-7.7); NEUTROPHILS % 61.4 % (36.0-66.0); PLATELET COUNT, AUTOMATED 233 k/mm3 (150-450); RED CELL DISTRIBUTION WIDTH 12.5 % (11.5-14.5)
[2016-08-12 05:35] LABS: ANION GAP 5 MEQ/L (8-16); BLOOD UREA NITROGEN 15 MG/DL (7-18); CALCIUM LEVEL 8.2 MG/DL (8.8-10.2); CARBON DIOXIDE LEVEL 27 MEQ/L (21-32); CHLORIDE LEVEL 108 MEQ/L (98-107); GLOMERULAR FILTRATION RATE > 60.0 (>39); GLUCOSE, FASTING 101 MG/DL (83-110); POTASSIUM SERUM 4.6 MEQ/L (3.5-5.1); SODIUM LEVEL 140 MEQ/L (136-145)
--- NOTE | 2016-08-12 05:59 | IPN ---
DATE: 08/11/2016 This is now the second postoperative day for Mrs. Izaguirre. She has no air leak. Her pain is being well controlled with the epidural. I removed the Vu catheter yesterday and she is able to urinate. Her vital signs show a T-max of 100.2 down from 101.2 the night of surgery. Heart ranges between 65 and 73 in a sinus rhythm, respiratory rate is constant at 18 who is 98% saturated on 2 liters nasal cannula and has blood pressures ranging between 120/64 to 96/51. Her intake and output over the past 24 hours has been recorded at 3034 in and 1540 out for a positivity of 1494 mL. She has taken in 2500 mL in oral intake. Her chest tube has put out 290 mL and there is no air leak. Weight today is 87.1 kg compared to 88.7 kg yesterday. On physical examination, her lungs show normal vesicular sounds with some faint crackles on the right side. I do not hear pleural friction rub. Percussion note is full to the diaphragm. Cardiac exam is without murmurs, clicks, gallops or rubs. I cannot feel her PMI. S1 and S2 are normal. Abdomen is soft, nontender, bowel sounds are positive. There is no hepatomegaly. No CVA tenderness. Extremities show no pretibial edema. No calf tenderness. No differential swelling of the upper extremities. Skin is warm, dry and perfused without cyanosis or mottling including that of the nail beds and knees. Neck is supple. There is no jugular venous distention. No subcutaneous emphysema. Trachea is midline. Mouth shows her mucous membranes to be pink and moist. Lips and commissures are without lesions. No thrush. Eyes show her pupils to be equal and reactive. Extraocular motor intact. Sclera anicteric. Neuro shows II through XII intact with gross motor and gross sensation intact. Gait is not tested. Psychiatric shows her to be awake and alert, oriented times three with appropriate mood and affect and conversational. White count today is 13.9 with hemoglobin and hematocrit of 7.3 and 35.4 with a platelet count of 216. Differential shows 74% neutrophils, 16% lymphocytes, 4% monocytes. There are no immature forms. No toxic granulations. Electrolytes are normal with a BUN and creatinine 21 and 0.94, glucose of 109 and a calcium of 8.9. She remains on Toradol. There are no blood gases on her today. Her chest x-ray today shows the lungs fully expanded to the chest wall with a marked diminution in subcutaneous emphysema. Chest tubes look to be more posterior than anterior. The right angle chest tube is slipped out of the costophrenic angle. I no longer see the pneumopericardium. There are no other infiltrates. IMPRESSION: 1. Spontaneous pneumothorax. 2. 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 3. Postoperative day #2 status post right upper lobe wedge resection and talc pleurodesis. 4. Underlying blood disease. 5. Mild emphysematous changes. 6. Hypertension. PLAN AND DISCUSSION: I will continue her on suction. She is doing well with the epidural as it is and I will let that be. I want the lung to thoroughly adhere to the chest wall and I will probably take out the chest tubes on Friday and plan for discharge on Friday.
[2016-08-12 08:00] VITALS: BP 129/75
[2016-08-12] MEDS ORDERED: SLF 3 ML SYR IV PRN (09:00)
--- NOTE | 2016-08-12 09:24 | REP ---
TWO VIEW CHEST: Two views of the chest are performed and compared with prior study of 08/11/2016. Two right chest tubes remain in place. There appears to be a tiny right apical pneumothorax. Emphysema in the chest wall appears essentially unchanged. Bibasilar parenchymal opacities are unchanged as is the cardiomediastinal silhouette. IMPRESSION: Two right chest tubes. Small right apical pneumothorax. Stable bibasilar opacities. Signed by Sumeet Ocasio MD 08/13/2016 04:00 P
[2016-08-12] MEDS: HEPARIN SOD (PORCINE) 5000 UNITS/ML VIAL SC SCH ×2 (09:50→21:47)
[2016-08-12] MEDS: DOCUSATE SODIUM 100 MG CAP PO SCH ×2 (09:52→21:46)
[2016-08-12] MEDS: PANTOPRAZOLE 40MG TAB (PROTONIX) PO SCH (09:52)
[2016-08-12] MEDS: LISINOPRIL 40 MG TAB PO SCH (09:52)
[2016-08-12] MEDS: MOM 30ML SUSPENSION UDC PO SCH (09:52)
[2016-08-12 12:00] VITALS: BP 145/70
[2016-08-12] MEDS: SLF 3 ML SYR IV SCH ×2 (14:35→21:48)
[2016-08-12 16:00] VITALS: BP 138/52
[2016-08-12] MEDS: FENTANYL/BUPIVACAINE/NACL BAG 250 ML EPIDURAL SCH (17:23)
[2016-08-12 20:47] VITALS: BP 120/58
[2016-08-13 00:58] VITALS: BP 127/61
[2016-08-13] MEDS: LEVALBUTEROL 1.25 MG/0.5 ML CONCENTRATE NEB NEB SCH ×3 (02:44→14:00)
[2016-08-13] MEDS: SLF 3 ML SYR IV SCH (03:15)
[2016-08-13] MEDS: KETOROLAC 30 MG/ML VIAL (J1885) IV SCH ×2 (03:15→09:11)
[2016-08-13 05:50] VITALS: BP 120/58
[2016-08-13 05:54] LABS: BASO % 0.2 % (0.0-1.0); EOS # 0.8 K/mm3 (0.0-0.50); EOS % 8.5 % (0.0-3.0); LARGE UNSTAINED CELL # 0.1 K/mm3 (0.0-0.4); LYMPH # 2.4 K/mm3 (1.5-4.5); LYMPH % 24.6 % (24.0-44.0); MEAN CORPUSCULAR HEMOGLOBIN 31.2 pg (27.0-33.0); MEAN CORPUSCULAR HGB CONC 32.5 g/dl (32.0-36.5); MEAN CORPUSCULAR VOLUME 96.1 fl (80.0-96.0); MONO # 0.4 K/mm3 (0.0-0.8); MONO % 4.2 % (0.0-5.0); NEUTROPHILS % 61.6 % (36.0-66.0); PLATELET COUNT, AUTOMATED 252 k/mm3 (150-450); RED CELL DISTRIBUTION WIDTH 12.4 % (11.5-14.5); WHITE BLOOD COUNT 9.8 K/mm3 (4.0-10.0)
[2016-08-13 06:15] LABS: ANION GAP 9 MEQ/L (8-16); BLOOD UREA NITROGEN 17 MG/DL (7-18); CALCIUM LEVEL 8.7 MG/DL (8.8-10.2); CARBON DIOXIDE LEVEL 27 MEQ/L (21-32); CHLORIDE LEVEL 109 MEQ/L (98-107); CREATININE FOR GFR 0.81 MG/DL (0.55-1.02); GLOMERULAR FILTRATION RATE > 60.0 (>39); GLUCOSE, FASTING 107 MG/DL (83-110); POTASSIUM SERUM 4.7 MEQ/L (3.5-5.1); SODIUM LEVEL 145 MEQ/L (136-145)
[2016-08-13 08:00] VITALS: BP 148/76
[2016-08-13] MEDS: PANTOPRAZOLE 40MG TAB (PROTONIX) PO SCH (09:12)
[2016-08-13] MEDS: DOCUSATE SODIUM 100 MG CAP PO SCH (09:12)
[2016-08-13] MEDS: LISINOPRIL 40 MG TAB PO SCH (09:12)
[2016-08-13] MEDS: HEPARIN SOD (PORCINE) 5000 UNITS/ML VIAL SC SCH (09:12)
[2016-08-13] MEDS: MOM 30ML SUSPENSION UDC PO SCH (09:12)
--- NOTE | 2016-08-13 10:10 | IPN ---
DATE: 08/12/2016 This is now the third postoperative day for Mrs. Izaguirre. There is no air leak and she is feeling well. Her pain is being well controlled with the epidural. Her vital signs show a maximum temperature (Tmax) of 99.7 with a heart rate that ranges between 70-88 in sinus rhythm, respiratory rate of 17-19 without the use of accessory muscles, who is 91-96% saturated on room and whose blood pressure is ranging between 145/70 to 120/58. Her intake and output today is recorded as 2160 in and 1725 for a positivity of 391 mL. She has put out 125 mL from the chest tube. There is no air leak. Her weight today is 86.6 kg compared to 87.1 kg yesterday. On physical examination, her lungs show equal breath sounds on either side without wheezes, rhonchi or rales. I hear no rubs. Percussion note is full to the diaphragm. Cardiac exam is without murmurs, clicks, gallops or rubs. I cannot feel her point of maximum impulse (PMI). S1 and S2 are normal. Abdomen is soft, nontender. Bowel sounds are positive. There is no hepatomegaly. No costovertebral angle (CVA) tenderness. Extremities show no pretibial edema, no calf tenderness. No differential swelling of the upper extremities. Skin is warm, dry and perfused, without cyanosis or mottling including that of the nail beds and knees. Neck is supple. There is no jugular venous distention. No subcutaneous emphysema. Trachea is midline. Mouth shows her mucous membranes to be pink and moist. Lips and commissures are without lesions. There is no thrush. Eyes show her pupils to be equal and reactive. Extraocular muscles intact. Sclera anicteric. Neuro shows II-XII intact along with gross motor and gross sensation intact. Gait is not tested. Psychiatric shows her to be awake and alert, oriented times three with appropriate mood and affect and conversational. Her white count today is 11.0, continuing to come down, with hemoglobin and hematocrit of 11.5 and 35.9, respectively and a platelet count of 233. Differential shows 61% neutrophils, 29% lymphocytes and 3% monocytes. There are no immature forms, no toxic granulations. Her electrolytes are normal with a BUN and creatinine of 15 and 0.8, with a glucose of 101 and a calcium of 8.2. Her chest x-ray shows her lung fully expanded to the chest wall. Costophrenic angles are sharp. I see no infiltrates. There is no residual pneumothorax. There is evidence of pleural thickening in the right lower hemithorax. Chest tubes are in good place. Subcutaneous emphysema has markedly decreased. IMPRESSION: 1. Spontaneous pneumothorax. 2. Alveolar pleural fistula resolved with the above procedure. 3. Postoperative day #3 status post right upper lobe wedge resection and talc pleurodesis. 4. Underlying bleb disease. 5. Mild emphysematous changes. 6. Hypertension. PLAN AND DISCUSSION: I will take her chest tube off suction today. If her lung remains to the chest wall, I will remove her chest tubes tomorrow and consider discharge the day after.
--- NOTE | 2016-08-13 10:15 | REP ---
TWO VIEW CHEST: Two views of the chest are performed and compared to prior study of 08/12/2016. Small right apical pneumothorax is stable. Two right chest tubes remain in place. Mild bibasilar parenchymal opacities are stable. The cardiomediastinal silhouette is unchanged. Scattered emphysema is seen in the chest wall, right greater than left. IMPRESSION: Stable exam. Signed by Sumeet Ocasio MD 08/13/2016 04:06 P
[2016-08-13 12:00] VITALS: BP 143/86
[2016-08-13] MEDS ORDERED: NORCOTAB PO (14:13)
--- NOTE | 2016-08-13 17:57 | REP ---
CHEST, TWO VIEWS: REASON: Followup. COMPARISON: 08/13/2016 at 7:47 a.m. Cardiomediastinal silhouette is unchanged. Lung mckinley are unchanged. Removal of the right side thoracotomy tubes. Subcutaneous emphysema to a degree that a pneumothorax could be obscured. I see no definite evidence of a distinct pneumothorax however a small right apical pneumothorax could be present. There is a surgical staple line in the right apex giving the appearance a pleural line. Obtain chest CT. Signed by Bishnu Morales DO 08/14/2016 10:20 A
== END 2016-08-13 15:05 | disposition home or self-care (01) | DRG 165 ==
LOC: M PCU 16:36
PROVIDERS: ADMIT Ophthalmology; ATTEND Thoracic Surgery (Cardiothoracic Vascular Surgery)
PROC: 0BBC4ZZ Excision of Right Upper Lung Lobe, Percutaneous Endoscopic Approach (ICD-10-PCS; 2016-08-09)
PROC: 3E0 Administration, Physiological Systems and Anatomical Regions, Introduction (ICD-10-PCS; 2016-08-09)
PROC: 0B988ZZ Drainage of Left Upper Lobe Bronchus, Via Natural or Artificial Opening Endoscopic (ICD-10-PCS; principal; 2016-08-09 13:45)
DX: J93.82 Other air leak (principal); I10 Essential (primary) hypertension; J98.2 Interstitial emphysema; J93.83 Other pneumothorax; R19.7 Diarrhea, unspecified; Z79.899 Other long term (current) drug therapy; Z87.891 Personal history of nicotine dependence

== ENCOUNTER → 2016-08-22 | Outpatient (REF) | payer MEDICARE ==
[~2016-08-22] MED LIST: LISI40TAB PO; NORCOTAB PO
[2016-08-22 17:36] LABS: ALBUMIN 3.4 GM/DL (3.2-5.2); ALKALINE PHOSPHATASE 44 U/L (45-117); ALT/SGPT 24 U/L (12-78); ANION GAP 8 MEQ/L (8-16); AST/SGOT 15 U/L (15-37); BILIRUBIN,TOTAL 0.5 MG/DL (0.2-1.0); BLOOD UREA NITROGEN 14 MG/DL (7-18); CALCIUM LEVEL 9.8 MG/DL (8.8-10.2); CARBON DIOXIDE LEVEL 28 MEQ/L (21-32); CHLORIDE LEVEL 106 MEQ/L (98-107); CHOLESTEROL LEVEL 200 MG/DL (<200); CREATININE FOR GFR 0.93 MG/DL (0.55-1.02); GLOMERULAR FILTRATION RATE > 60.0 (>32); GLUCOSE, FASTING 95 MG/DL (83-110); POTASSIUM SERUM 4.4 MEQ/L (3.5-5.1); SODIUM LEVEL 142 MEQ/L (136-145); TOTAL PROTEIN 6.8 GM/DL (6.4-8.2); TRIGLYCERIDES LEVEL 209 MG/DL (<150)
== END ==
LOC: M SFHCCLAY 11:06
PROVIDERS: ATTEND Family Medicine
DX: E78.2 Mixed hyperlipidemia (principal); I10 Essential (primary) hypertension

== ENCOUNTER → 2016-08-22 | Outpatient (CLI) | payer MEDICARE ==
--- NOTE | 2016-08-22 09:11 | REP ---
Clinical: Follow up pneumothorax. Technique: PA and lateral. Comparison: 08/13/2016. Findings: Right lower lobe pleuroparenchymal changes along with minimal right apical pleuroparenchymal changes and associated subcutaneous emphysema appear improved when compared to prior examination. No further, new area of consolidation, effusion, or definite pneumothorax appreciated. Mediastinum and cardiac silhouette are stable and within normal limits. Skeletal structures are intact. Impression: Continued pleuroparenchymal changes involving the right hemithorax and subcutaneous emphysema which appear improved compared to prior examination. No new acute process identified. The Signed by Lonny Ram MD 08/22/2016 09:03 A
== END ==
LOC: M SMT 08:31
PROVIDERS: ATTEND Thoracic Surgery (Cardiothoracic Vascular Surgery)
DX: C34.12 Malignant neoplasm of upper lobe, left bronchus or lung (principal); E78.2 Mixed hyperlipidemia; I10 Essential (primary) hypertension

== ENCOUNTER → 2016-09-12 | Outpatient (CLI) | payer MEDICARE ==
--- NOTE | 2016-09-12 12:15 | REP ---
CHEST, TWO VIEWS: HISTORY: Pneumothorax. COMPARISON: 08/22/2016. Parenchymal densities are present in the right lower lobe consistent with scar. The left lung is clear. The heart is upper limits of normal in size. The pulmonary vasculature is normal in appearance. The bony structure is intact. IMPRESSION: Right lower lobe scarring. Signed by Niraj Nielson MD 09/12/2016 12:26 P
== END ==
LOC: M SMT 11:07
PROVIDERS: ATTEND Thoracic Surgery (Cardiothoracic Vascular Surgery)
DX: J98.4 Other disorders of lung (principal)

== ENCOUNTER → 2017-01-13 | Outpatient (CLI) | payer MEDICARE ==
--- NOTE | 2017-01-13 10:20 | REP ---
Chest two views HISTORY: Pneumothorax Comparison: 09/12/2016 Linear densities are present in the lower lobes consistent with scarring. The heart is upper limits of normal in size. The pulmonary vasculature is normal in appearance. The bony structure is intact. IMPRESSION: Bibasilar scarring. Signed by Niraj Nielson MD 01/13/2017 10:12 A
== END ==
LOC: M SMT 09:55
PROVIDERS: ATTEND Thoracic Surgery (Cardiothoracic Vascular Surgery)
DX: J93.83 Other pneumothorax (principal)

== ENCOUNTER → 2017-02-18 | Outpatient (REF) | payer MEDICARE ==
[2017-02-18 12:13] LABS: ALBUMIN 3.6 GM/DL (3.2-5.2); ALBUMIN/GLOBULIN RATIO 1.03 (1.00-1.93); ALKALINE PHOSPHATASE 43 U/L (45-117); ALT/SGPT 23 U/L (12-78); ANION GAP 5 MEQ/L (8-16); AST/SGOT 14 U/L (7-37); BILIRUBIN,TOTAL 0.6 MG/DL (0.2-1.0); BLOOD UREA NITROGEN 16 MG/DL (7-18); CALCIUM LEVEL 9.2 MG/DL (8.8-10.2); CARBON DIOXIDE LEVEL 33 MEQ/L (21-32); CHLORIDE LEVEL 103 MEQ/L (98-107); CHOLESTEROL LEVEL 233 MG/DL (<200); CREATININE FOR GFR 0.95 MG/DL (0.55-1.02); GLOMERULAR FILTRATION RATE > 60.0 (>32); GLUCOSE, FASTING 97 MG/DL (83-110); POTASSIUM SERUM 3.9 MEQ/L (3.5-5.1); SODIUM LEVEL 141 MEQ/L (136-145); TOTAL PROTEIN 7.1 GM/DL (6.4-8.2); TRIGLYCERIDES LEVEL 193 MG/DL (<150)
== END ==
LOC: M SFHCCLAY 08:00
PROVIDERS: ATTEND Family Medicine
DX: E78.2 Mixed hyperlipidemia (principal); I10 Essential (primary) hypertension

== ENCOUNTER 2017-07-30 12:01 | Outpatient (REF) | payer MEDICARE | END 2017-08-27 | LOC: M SFHCCLAY 12:01 | DX: R30.0 Dysuria (principal); E78.2 Mixed hyperlipidemia; I10 Essential (primary) hypertension | CPT/HCPCS: 84443; 87186 ==

== ENCOUNTER → 2018-03-02 | Outpatient (REF) | payer MEDICARE ==
[2018-03-03 12:42] LABS: ALBUMIN/GLOBULIN RATIO 1.33 (1.00-1.93); ALKALINE PHOSPHATASE 51 U/L (45-117); ALT/SGPT 26 U/L (12-78); ANION GAP 9 MEQ/L (8-16); AST/SGOT 19 U/L (7-37); BILIRUBIN,TOTAL 0.8 MG/DL (0.2-1.0); BLOOD UREA NITROGEN 21 MG/DL (7-18); CALCIUM LEVEL 9.7 MG/DL (8.8-10.2); CARBON DIOXIDE LEVEL 31 MEQ/L (21-32); CHLORIDE LEVEL 100 MEQ/L (98-107); CREATININE FOR GFR 0.98 MG/DL (0.55-1.30); GLUCOSE, FASTING 123 MG/DL (70-100); POTASSIUM SERUM 3.4 MEQ/L (3.5-5.1); SODIUM LEVEL 140 MEQ/L (136-145)
== END ==
LOC: M SFHCCLAY 13:42
DX: I10 Essential (primary) hypertension (principal)
CPT/HCPCS: 80053

== ENCOUNTER → 2018-05-11 | Outpatient (REF) | payer MEDICARE ==
[~2018-05-11] MED LIST changes: +LISI40TA PO; -LISI40TAB PO
== END ==
LOC: M LAB REF 13:10
PROVIDERS: ATTEND Specialist
DX: N92.0 Excessive and frequent menstruation with regular cycle (principal)

== ENCOUNTER → 2018-06-22 | Outpatient (REF) | payer MEDICARE | LOC: M LAB REF 13:46 | PROVIDERS: ATTEND Specialist | DX: N32.81 Overactive bladder (principal) ==

== ENCOUNTER → 2018-09-01 | Outpatient (REF) | payer MEDICARE ==
[~2018-09-01] MED LIST changes: +HYDR-3715 PO; -NORCOTAB PO
[2018-09-01 11:29] LABS: ALBUMIN 3.8 GM/DL (3.2-5.2); BILIRUBIN,TOTAL 0.6 MG/DL (0.2-1.0); CALCIUM LEVEL 9.2 MG/DL (8.8-10.2); CHOLESTEROL RISK RATIO 3.305 (<5); CREATININE FOR GFR 1.11 MG/DL (0.55-1.30); GLOMERULAR FILTRATION RATE 50.1 (>32); POTASSIUM SERUM 3.6 MEQ/L (3.5-5.1); TOTAL PROTEIN 6.9 GM/DL (6.4-8.2)
== END ==
LOC: M SFHCCLAY 08:05
PROVIDERS: ATTEND Family Medicine
DX: E78.2 Mixed hyperlipidemia (principal)

== ENCOUNTER → 2019-03-02 | Outpatient (REF) | payer MEDICARE ==
[2019-03-02 12:49] LABS: GLOMERULAR FILTRATION RATE 56.5 (>32); POTASSIUM SERUM 3.6 MEQ/L (3.5-5.1)
== END ==
LOC: M SFHCCLAY 07:31
PROVIDERS: ATTEND Family Medicine
DX: I10 Essential (primary) hypertension (principal)

== ENCOUNTER → 2019-03-10 | Outpatient (CLI) | payer MEDICARE ==
--- NOTE | 2019-03-10 11:33 | REP ---
Bilateral pain and swelling. Technique: AP, lateral, bilateral oblique views of the right and left wrist. Findings: Generalized age-related changes are appreciated including haider carpal subchondral sclerosis with minimal scattered areas of joint space narrowing. Findings are most pronounced at the right radiocarpal joint space with near complete loss of the joint space at the radiolunate articulation. No acute fracture dislocation. 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 Electronically Signed by Lonny Ram MD 03/10/2019 11:24 A
== END ==
LOC: M CLY 10:48
PROVIDERS: ATTEND Family Medicine
DX: M19.031 Primary osteoarthritis, right wrist (principal); M25.439 Effusion, unspecified wrist

== ENCOUNTER → 2019-04-30 | Outpatient (CLI) | payer MEDICARE | LOC: M WHC 13:35 | PROVIDERS: ATTEND Family Medicine | DX: Z78.0 Asymptomatic menopausal state (principal) ==

== ENCOUNTER → 2019-05-31 | Outpatient (REF) | payer MEDICARE | LOC: M SFHCCLAY 11:40 | PROVIDERS: ATTEND Family Medicine | DX: M85.851 Other specified disorders of bone density and structure, right thigh (principal); M85.852 Other specified disorders of bone density and structure, left thigh ==

== ENCOUNTER → 2019-09-16 | Outpatient (REF) | payer MEDICARE ==
[2019-09-16 11:50] LABS: CHOLESTEROL RISK RATIO 3.22 (<5); GLOMERULAR FILTRATION RATE 56.4 (>32); POTASSIUM SERUM 3.7 MEQ/L (3.5-5.1)
== END ==
LOC: M SFHCCLAY 08:08
PROVIDERS: ATTEND Family Medicine
DX: E78.2 Mixed hyperlipidemia (principal); I11.9 Hypertensive heart disease without heart failure

== ENCOUNTER → 2019-10-25 | Outpatient (CLI) | payer MEDICARE ==
--- NOTE | 2019-10-25 15:44 | REPMRS ---
Patient History The patient states she had a clinical breast exam in October 2019.Family history of unknown cancer at age 50 or over in father, breast cancer at age 50 or over in mother. Digital Woman Screen Mammo: October 25, 2019 - Exam #: [id number] Bilateral CC and MLO view(s) were taken. Technologist: Carolina Turner, Technologist Prior study comparison: September 29, 2012, digital woman screen mammo performed at [facility]. September 05, 2011, digital woman screen mammo performed at [facility]. January 30, 2010, bilateral bilat screen digital mammo performed at [facility]. FINDINGS: There are scattered fibroglandular densities. The Volpara volumetric breast density category is:B. There has been no change in the appearance of the mammogram from the prior studies. There is a mild amount of scattered fibroglandular density which is fairly symmetric. There is no interval development of dominant mass, architectural distortion, or grouped microcalcification suggestive of malignancy. 3-D tomosynthesis shows no additional findings. Assessment: BI-RADS/ACR category 1 mammogram. Negative Mammogram. Recommendation Routine screening mammogram of both breasts in 1 year (for women over age 40). This patient's Lifetime Breast Cancer Risk is estimated at 0.9 %. This mammogram was interpreted with the aid of an FDA-approved computer-aided dectection system. Electronically Signed By: Scotty Gu MD 10/25/19 [id number]
== END ==
LOC: M WHC 13:42
PROVIDERS: ATTEND Specialist
DX: Z12.31 Encounter for screening mammogram for malignant neoplasm of breast (principal); Z80.3 Family history of malignant neoplasm of breast

== ENCOUNTER → 2020-03-09 | Outpatient (REF) | payer MEDICARE ==
[2020-03-09 12:35] LABS: CALCIUM LEVEL 10.1 MG/DL (8.8-10.2); CREATININE FOR GFR 0.98 MG/DL (0.55-1.30); GLOMERULAR FILTRATION RATE 57.7 (>32); POTASSIUM SERUM 3.3 MEQ/L (3.5-5.1)
== END ==
LOC: M SFHCCLAY 09:01
PROVIDERS: ATTEND Family Medicine
DX: I11.9 Hypertensive heart disease without heart failure (principal)

== ENCOUNTER → 2020-09-07 | Outpatient (REF) | payer MEDICARE ==
[~2020-09-07] MED LIST changes: -LISI40TA PO; +LISI40TA4 PO
[2020-09-07 16:14] LABS: CALCIUM LEVEL 9.5 MG/DL (8.8-10.2); GLOMERULAR FILTRATION RATE 56.2 (>32); POTASSIUM SERUM 3.7 MEQ/L (3.5-5.1)
== END ==
LOC: M SFHCCLAY 08:24
PROVIDERS: ATTEND Family Medicine
DX: I11.9 Hypertensive heart disease without heart failure (principal)

== ENCOUNTER 2020-10-07 13:04 | Inpatient (IN) | payer MEDICARE ==
[~2020-10-07] VITALS: Ht 160 cm; Wt 81.8 kg
[2020-10-07] MEDS ORDERED: AMLO1TAB24 PO (13:26)
[2020-10-07] MEDS ORDERED: TRIA37.5 PO (13:26)
[2020-10-07] MEDS ORDERED: OXYB10TA23 PO (13:26)
[2020-10-07] MEDS ORDERED: NS 1,000 ML IV ONE (13:35)
[2020-10-07] MEDS ORDERED: ACETAMINOPHEN 500 MG TAB PO ONE (13:40)
[2020-10-07] MEDS ORDERED: LIDOCAINE 2% 5ML JELLY UROJET TOP ONE (13:40)
--- NOTE | 2020-10-07 13:55 | REP ---
INDICATION: fever COMPARISON: 01/13/2017 TECHNIQUE: Portable AP view of the chest FINDINGS: The mediastinum and cardiac silhouette are stable and within normal limits for portable technique. The lung mckinley demonstrate chronic interstitial changes including linear scarring in the left lower lung zone. No acute focal consolidation, obvious effusion, or pneumothorax. Skeletal structures are intact. IMPRESSION: Chronic changes. No acute focal consolidation or effusion. <Electronically signed by Lonny Ram > 10/07/20 [id number]
--- NOTE | 2020-10-07 14:08 | REP ---
INDICATION: confusion at times COMPARISON: None. TECHNIQUE: Axial noncontrast images from the skull base to the thoracic inlet with coronal reformations. This CT examination was performed using the following dose reduction techniques: Automated exposure control, adjustment of mA and/or kv according to the patient's size, and use of iterative reconstruction technique. FINDINGS: Age-related atrophy with periventricular leukomalacia and microvascular ischemic changes are appreciated. The ventricles and sulci are symmetric. Ocasio-white differentiation is maintained. There is no evidence for acute intracranial hemorrhage, mass/mass effect, pathology or infarction. No extra-axial fluid collection. Calvarium is intact. Paranasal sinuses and mastoid air cells are clear. IMPRESSION: Age-related atrophy and microvascular ischemic changes. No acute intracranial hemorrhage, infarction, or mass/mass effect. <Electronically signed by Lonny Ram > 10/07/20 [id number]
[2020-10-07 14:22] LABS: HEMOGLOBIN 14.7 g/dl (12.0-15.5); MEAN CORPUSCULAR HEMOGLOBIN 30.6 pg (27.0-33.0); MEAN CORPUSCULAR HGB CONC 34.2 g/dl (32.0-36.5); MEAN CORPUSCULAR VOLUME 89.6 fl (80.0-96.0)
[2020-10-07 14:50] LABS: PLATELET COUNT, AUTOMATED 33 10^3/uL (150-450)
[2020-10-07 14:56] LABS: LYMPHOCYTES 6 % (16-44); METAMYELOCYTES 1 % (0-0); MONOCYTES 1 % (0-5); NEUTROPHILS 75 % (28-66); PLATELET ESTIMATE DECREASED (NORMAL)
[2020-10-07 15:05] LABS: ALBUMIN 3.3 GM/DL (3.2-5.2); ALT/SGPT 98 U/L (12-78); BILIRUBIN,DIRECT 0.5 MG/DL (0.0-0.2); BLOOD UREA NITROGEN 23 MG/DL (7-18); CALCIUM LEVEL 8.7 MG/DL (8.8-10.2); CARBON DIOXIDE LEVEL 31 MEQ/L (21-32); CHLORIDE LEVEL 93 MEQ/L (98-107); CK-MB VALUE MASS < 1.0 NG/ML (<3.6); CPK CREATINE PHOSPHOKINASE 225 U/L (26-192); CREATININE FOR GFR 1.22 MG/DL (0.55-1.30); GLOMERULAR FILTRATION RATE 44.7 (>32); GLUCOSE, FASTING 136 MG/DL (70-100); LIPASE 98 U/L (73-393); MAGNESIUM LEVEL 1.7 MG/DL (1.8-2.4); MB/CK RELATIVE INDEX 0.44 (< OR =4); POTASSIUM SERUM 2.4 MEQ/L (3.5-5.1); SODIUM LEVEL 132 MEQ/L (136-145); TOTAL PROTEIN 6.7 GM/DL (6.4-8.2); TROPONIN I < 0.02 NG/ML (< 0.10)
[2020-10-07] MEDS ORDERED: MAG SULF 1GM/100ML (MAG RUN) 1 GM in IV 1 EA IV ONE (15:10)
[2020-10-07] MEDS ORDERED: ISOVUE-370 76% 100ML VIAL As Ordered ONE (15:15)
[2020-10-07] MEDS ORDERED: cefTRIAXone SOD 2 GM in D5W MINI-BAG PLUS 50 ML IV ONE (15:15)
[2020-10-07] MEDS ORDERED: POTASSIUM CHLORIDE 10 MEQ SR TABLET PO ONE ×2 (15:15→18:00)
--- NOTE | 2020-10-07 15:57 | REP ---
INDICATION: elevated bands ro source of fever COMPARISON: Noncontrast chest CT dated 08/07/2016 TECHNIQUE: Axial contrast enhanced images from the thoracic inlet to the upper abdomen using pulmonary embolus technique with multiplanar re-formations. 100 ml Isovue 370 intravenous contrast material administered without complication. This CT examination was performed using the following dose reduction techniques: Automated exposure control, adjustment of mA and/or kv according to the patient's size, and use of iterative reconstruction technique. FINDINGS: Satisfactory enhancement of the pulmonary vasculature is achieved and no filling defects are identified to suggest pulmonary embolus. Further evaluation of the mediastinum demonstrates atherosclerotic changes to the thoracic aorta and coronary arteries without aortic aneurysm or dissection. Mild cardiomegaly noted. No pericardial effusion. Lung mckinley demonstrate chronic interstitial changes with superimposed trace bibasilar atelectasis and small left lower lobe and lingular consolidations. No effusion. No pneumothorax. No significant adenopathy. IMPRESSION: No evidence for pulmonary embolus. Mild bibasilar atelectasis and small left lower lobe/lingular consolidations suggesting acute pneumonia. Correlation is recommended. <Electronically signed by Lonny Ram > 10/07/20 [id number]
[2020-10-07] MEDS ORDERED: KCL 10MEQ/100ML SWI (KRUN) 10 MEQ in IV 1 EA IV ONE (16:00)
--- NOTE | 2020-10-07 16:02 | REP ---
INDICATION: elevated bands ro source of fever. COMPARISON: None TECHNIQUE: Axial contrast-enhanced images from the lung bases to the pubic symphysis using 100 cc Isovue 370 intravenous contrast material. Coronal and sagittal reformations obtained. This CT examination was performed using the following dose reduction techniques: Automated exposure control, adjustment of mA and/or kv according to the patient's size, and the use of iterative reconstruction technique. FINDINGS: Liver demonstrates heterogeneous coarsened echotexture raising the possibility of underlying hepatocellular disease. No focal hepatic lesion identified. Spleen, pancreas, and bilateral adrenal glands are normal. Kidneys demonstrate age-related cortical thinning. Evidence for prior cholecystectomy noted. The enteric system is without obstruction or acute inflammatory process. Colonic and sigmoid diverticulosis noted without acute diverticulitis. Pelvis demonstrates normal bladder and prior hysterectomy. No ascites. No free air. No intraperitoneal or retroperitoneal adenopathy. Atherosclerotic changes to the aorta and vasculature without aneurysm or dissection. Musculoskeletal structures demonstrate age-related degenerative changes without acute process. IMPRESSION: No acute abdominopelvic pathology appreciated. Chronic changes as noted above. <Electronically signed by Lonny Ram > 10/07/20 [id number]
[2020-10-07] MEDS ORDERED: TUMERIC PO (16:13)
[2020-10-07] MEDS ORDERED: D31000TA2 PO (16:13)
[2020-10-07] MEDS ORDERED: KRIL1000 PO (16:13)
[2020-10-07] MEDS ORDERED: ASTA4CAP PO (16:13)
--- NOTE | 2020-10-07 16:35 | HPEPDOC ---
General Date of Admission 10/07/20 Date of Service: Oct 07, 2020 Chief Complaint The patient is a 85-year-old female admitted with a reason for visit of Vomiting/Headache. Source: Patient, RN/MD History of Present Illness 85-year-old female with past medical history of hypertension, hyperlipidemia, osteopenia presented to the emergency room with 3 days history of malaise, wea kness, tiredness, poor appetite, and excessive sleepiness. She reported that she has been so tired that for the past 2 days she has been just sleeping all day long so today at the insistence of her daughter went to the urgent care where she was told that she is dehydrated and they instructed her to come to the emergency room. Patient also reported that she was having 3-4 episodes of bowel movements with some associated diarrhea for the past couple days. Denied any abdominal pain any nausea. Did have one episode of vomiting at home. She did report that she was very cold and chilled at home however when she checked her temperature it was always 97. Today at the urgent care she was noted to have a temperature of 100.3 and at the emergency room her temperature on presentation was 100.6. Lab work in the emergency room was significant for a band of 17% and platelet of 33. She also had a potassium of 2.4 and a magnesium of 1.7. Her AST and ALT were mildly elevated. A CT abdomen and pelvis done in the emergency room showed a course echotexture of the liver diverticulosis without any diverticulitis. There was no acute abdominopelvic pathology. She also had a CTA of the chest Mild bibasilar atelectasis and small left lower lobe/lingular consolidations suggesting acute pneumonia. It was negative for pulmonary embolism. She was admitted for left lower lobe pneumonia hypokalemia and hypomagnesemia. Home Medications Scheduled Amlodipine Besylate (Amlodipine Besylate) 5 Mg Tablet, 5 MG PO DAILY, (Reported) Astaxanthin (Astaxanthin) 4 Mg Capsule, 4 MG PO DAILY, (Reported) Cholecalciferol (Vitamin D3) (Vitamin D3) 1,000 Unit Tablet, 1,000 UNITS PO DAILY, (Reported) Krill/Om3/Dha/Epa/Om6/Lip/Astx (Krill Oil 1,000 mg Softgel) 1 Each Capsule, 1 CAP PO DAILY, (Reported) Oxybutynin Chloride (Oxybutynin Chloride ER) 10 Mg Tab.er.24, 10 MG PO DAILY, (Reported) Triamterene/Hydrochlorothiazid (Triamterene-Hctz 37.5-25 mg Tb) 1 Each Tablet, 1 TAB PO DAILY, (Reported) [Tumeric] , 400 MG PO DAILY, (Reported) Allergies Coded Allergies: Penicillins (Verified Allergy, Unknown, 10/07/20) celecoxib (Verified Allergy, Unknown, 10/07/20) soap (Verified Adverse Reaction, Unknown, tide causes itching, 10/07/20) Past Medical History Medical History Urge incontinence, hypertension, hyperlipidemia, osteopenia Surgical History APPENDECTOMY 1978 CHOLECYSTECTOMY 1993 INGUINAL HERNIA REPAIR X 3- BILATERAL 1972,1974 PARTIAL HYSTERECTOMY AGE 31'S COLONOSCOPY 11/2010 BILATERAL CATARACT 08/2013 PNEUMOTHORAX- DR. TAMEZ 08/09/16 Family History FATHER: , LIVER CANCER, MOTHER: , ALZHEIMER, SIBLINGS: ALIVE, HYPERTENSION, HYPERTENSION SON: , MYOCARDIAL INFARCTION, HYPERTENSION Social History * Smoker: former Smoker (quit in 1984) Alcohol: rarely Drugs: denies A-FIB/CHADSVASC A-FIB History Current/History of A-Fib/PAF?: No Review of Systems Constitutional: Reports: Chills, Fever, Malaise, Weakness, Fatigue Eyes: Denies: Pain, Vision change ENT: Reports: Head Aches Skin: Denies: Rash, Lesions, Breakdown Pulmonary: Denies: Dyspnea, Cough Cardiovascular: Denies: Chest Pain, Palpitations, Orthopnea, Paroxysmal Noc. Dyspnea, Lt Headedness Gastrointestinal: Reports: Vomiting, Diarrhea Genitourinary: Denies: Dysuria, Frequency, Incontinence, Retention Musculoskeletal: Denies: Neck Pain, Back Pain, Joint Pain, Muscle Pain, Spasms Physical Examination General Exam: Positive: Alert, Cooperative, No Acute Distress Eye Exam: Positive: PERRLA, Conjunctiva & lids normal, EOMI; Negative: Sclera icteric ENT Exam: Positive: Atraumatic, Mucous membr. moist/pink, Pharynx Normal Neck Exam: Positive: Supple; Negative: JVD, thyromegaly Chest Exam: Positive: Normal air movement, Other (Crackles at the left base) Heart Exam: Positive: Rate Normal, Regular Rhythm, Normal S1, Normal S2; Negative: Murmurs, Rubs Telemetry: Positive: No significant arrhythmia Abdomen Exam: Positive: Normal bowel sounds, Soft; Negative: Tenderness, Hepatospenomegaly Extremity Exam: Negative: Clubbing, Cyanosis, Edema Vital Signs Vital Signs Date Time Temp Pulse Resp B/P (MAP) Pulse Ox O2 Delivery O2 Flow Rate FiO2 10/07/20 14:30 76 117/59 (78) 90 Room Air 10/07/20 13:05 100.6 18 Laboratory Data Labs 24H Laboratory Tests 2 10/07/20 14:05: Neutrophils (%) (Auto) , Nucleated Red Blood Cells % (auto) 0.0, Neutrophils 75H, Band Neutrophils 17H, Lymphocytes (Manual) 6L, Monocytes (Manual) 1, Metamyelocytes 1H, Red Blood Cell Morphology NORMAL, Platelet Estimate DECREASED, Immature Platelet Fraction 10.7H, Anion Gap 8, Glomerular Filtration Rate 44.7, Lactic Acid Level 1.5, Calcium Level 8.7L, Magnesium Level 1.7L, Total Bilirubin 1.0, Direct Bilirubin 0.5H, Aspartate Amino Transf (AST/SGOT) 135H, Alanine Aminotransferase (ALT/SGPT) 98H, Alkaline Phosphatase 99, Total Creatine Kinase 225H, Creatine Kinase MB < 1.0, Creatine Kinase MB Relative Index 0.44, Troponin I < 0.02, Total Protein 6.7, Albumin 3.3, Albumin/Globulin Ratio 1.0L, Lipase 98 10/07/20 14:13: POC Glucose (Misc Panel) 142H, POC Sodium (Misc Panel) 133L, POC Potassium (Misc Panel) 2.3*L, POC Chloride (Misc Panel) 90L, POC Total CO2 (Misc Panel) 26.0, POC Blood Urea Nitrogen (Misc Panel 23, POC Ionized Calcium (Misc Panel) 4.4L, POC Creatinine (Misc Panel) 1.3, POC Hematocrit (Misc Panel) 43.0 10/07/20 14:33: Urine Color MELODY, Urine Appearance HAZY, Urine pH 6.0, Urine Specific [place] 1.019, Urine Protein 2+H, Urine Glucose (UA) NEGATIVE, Urine Ketones TRACEH, Urine Blood NEGATIVE, Urine Nitrite NEGATIVE, Urine Bilirubin NEGATIVE, Urine Urobilinogen 2.0H, Urine Leukocyte Esterase NEGATIVE, Urine WBC (Auto) 1, Urine RBC (Auto) 4H, Urine Hyaline Casts (Auto) 0, Urine Bacteria (Auto) NEGATIVE, Urine Squamous Epithelial Cells 0, Urine Mucus (Auto) SMALL, Urine Sperm (Auto) CBC/BMP Laboratory Tests 10/07/20 14:05 Microbiology Microbiology 10/07/20 Blood Culture, Received Pending 10/07/20 Blood Culture, Received Pending 10/07/20 Respiratory Virus Panel (PCR) ([facility]) - Final, Complete Assessment/Plan 85-year-old female with past medical history of hypertension, hyperlipidemia, osteopenia presented to the emergency room with 3 days history of malaise, weakness, tiredness, poor appetite, and excessive sleepiness. She reported that she has been so tired that for the past 2 days she has been just sleeping all day long so today at the insistence of her daughter went to the urgent care where she was told that she is dehydrated and they instructed her to come to the emergency room. At the emergency room her temperature on presentation was 100.6. Lab work in the emergency room was significant for a band of 17% and platelet of 33. She also had a potassium of 2.4 and a magnesium of 1.7. Her AST and ALT were mildly elevated. A CT abdomen and pelvis done in the emergency room showed a course echotexture of the liver diverticulosis without any diverticulitis. There was no acute abdominopelvic pathology. She also had a CTA of the chest Mild bibasilar atelectasis and small left lower lobe/lingular consolidations suggesting acute pneumonia. It was negative for pulmonary embolism. She was admitted for left lower lobe pneumonia hypokalemia and hypomagnesemia. Left lower lobe pneumonia with bandemia WBC is normal however has 17% bands We will continue with ceftriaxone, will add azithromycin Blood cultures sent Hypokalemia and hypomagnesemia and hyponatremia Likely due to diuretics and having poor oral intake last few days replaced Hypertension Continue amlodipine Thrombocytopenia without anemia CT abdomen pelvis shows and coarse echotexture suggestive of underlying hepatocellular disease If after treatment of infection thrombocytopenia does not improve it could be due to a chronic liver disease Patient will need to be referred to hematology for further work-up if thrombocytopenia does not improve There is no splenomegaly. Transaminitis Likely due to infection. Urge incontinence Continue oxybutynin Plan / VTE VTE Prophylaxis Ordered?: Yes HAYES SIMPSON MD Oct 07, 2020 16:35
--- NOTE | 2020-10-07 19:11 | ECGEPIP ---
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
[2020-10-07] MEDS: AZITHROMYCIN INJ 500 MG, VIAL MATE ADAPTER 1 EACH in NS 250 ML IV SCH (20:31)
[2020-10-07 21:00] VITALS: BP 111/52
[2020-10-07 23:00] LABS: CALCIUM LEVEL 8.1 MG/DL (8.8-10.2); CREATININE FOR GFR 0.98 MG/DL (0.55-1.30); GLOMERULAR FILTRATION RATE 57.6 (>32); MAGNESIUM LEVEL 1.8 MG/DL (1.8-2.4); POTASSIUM SERUM 3.2 MEQ/L (3.5-5.1)
[2020-10-08 06:00] VITALS: BP 130/71
[2020-10-08 06:19] LABS: HEMATOCRIT 40.8 % (36.0-47.0); MEAN CORPUSCULAR HEMOGLOBIN 30.6 pg (27.0-33.0); MEAN CORPUSCULAR HGB CONC 34.3 g/dl (32.0-36.5); MEAN CORPUSCULAR VOLUME 89.3 fl (80.0-96.0); RED BLOOD COUNT 4.57 10^6/uL (4.00-5.40); WHITE BLOOD COUNT 3.5 10^3/uL (4.0-10.0)
[2020-10-08 06:24] LABS: PLATELET COUNT, AUTOMATED 25 10^3/uL (150-450)
[2020-10-08 06:54] LABS: BLOOD UREA NITROGEN 16 MG/DL (7-18); CALCIUM LEVEL 8.5 MG/DL (8.8-10.2); CARBON DIOXIDE LEVEL 29 MEQ/L (21-32); CHLORIDE LEVEL 97 MEQ/L (98-107); CREATININE FOR GFR 0.88 MG/DL (0.55-1.30); GLOMERULAR FILTRATION RATE > 60.0 (>32); GLUCOSE, FASTING 120 MG/DL (70-100); MAGNESIUM LEVEL 1.7 MG/DL (1.8-2.4); POTASSIUM SERUM 2.9 MEQ/L (3.5-5.1); SODIUM LEVEL 133 MEQ/L (136-145)
[2020-10-08] MEDS ORDERED: POTASSIUM CHLORIDE 10 MEQ SR TABLET PO ONE ×2 (07:30→14:15)
[2020-10-08] MEDS ORDERED: MAG SULF 1GM/100ML (MAG RUN) 1 GM in IV 1 EA IV ONE (08:00)
[2020-10-08 08:07] VITALS: BP 130/71
[2020-10-08] MEDS: oxyBUTYnin *DITROPAN XL* 5 MG TABCR PO SCH (08:07)
[2020-10-08 08:26] LABS: ATYPICAL LYMPH 2 % (0-5); LYMPHOCYTES 3 % (16-44); METAMYELOCYTES 1 % (0-0); MONOCYTES 3 % (0-5); NEUTROPHILS 56 % (28-66)
[2020-10-08 08:38] LABS: PLATELET ESTIMATE DECREASED (NORMAL)
[2020-10-08 08:40] LABS: DOHLE BODIES 2+
[2020-10-08] MEDS ORDERED: amLODIPine 5 MG TAB PO SCH (09:00)
[2020-10-08] MEDS: POTASSIUM CHLORIDE 10 MEQ SR TABLET PO SCH (09:13)
--- NOTE | 2020-10-08 11:04 | IPNPDOC ---
Subjective Date Seen The patient was seen on 10/08/20. Subjective Chief Complaint/HPI continues to feel very tired and sick. Denies any cough. Continues to have diarrhea. Objective Physical Examination General Exam: Positive: Alert, Cooperative, No Acute Distress Eye Exam: Positive: PERRLA, Conjunctiva & lids normal, EOMI; Negative: Sclera icteric ENT Exam: Positive: Atraumatic, Mucous membr. moist/pink, Pharynx Normal Neck Exam: Positive: Supple; Negative: JVD, thyromegaly Chest Exam: Positive: Normal air movement, Other (Crackles at the left base) Heart Exam: Positive: Rate Normal, Regular Rhythm, Normal S1, Normal S2; Negative: Murmurs, Rubs Telemetry: Positive: No significant arrhythmia Abdomen Exam: Positive: Normal bowel sounds, Soft; Negative: Tenderness, Hepatospenomegaly Extremity Exam: Negative: Clubbing, Cyanosis, Edema Assessment /Plan Assessment 85-year-old female with past medical history of hypertension, hyperlipidemia, osteopenia presented to the emergency room with 3 days history of malaise, weakness, tiredness, poor appetite, and excessive sleepiness. She reported that she has been so tired that for the past 2 days she has been just sleeping all day long so today at the insistence of her daughter went to the urgent care where she was told that she is dehydrated and they instructed her to come to the emergency room. At the emergency room her temperature on presentation was 100.6. Lab work in the emergency room was significant for a band of 17% and platelet of 33. She also had a potassium of 2.4 and a magnesium of 1.7. Her AST and ALT were mildly elevated. A CT abdomen and pelvis done in the emergency room showed a course echotexture of the liver diverticulosis without any diverticulitis. There was no acute abdominopelvic pathology. She also had a CTA of the chest Mild bibasilar atelectasis and small left lower lobe/lingular consolidations suggesting acute pneumonia. It was negative for pulmonary embolism. She was admitted for left lower lobe pneumonia hypokalemia and hypomagnesemia. Left lower lobe pneumonia with bandemia WBC is normal however has 17% bands We will continue with ceftriaxone, azithromycin Blood cultures sent Hypokalemia and hypomagnesemia and hyponatremia Likely due to diuretics and having poor oral intake last few days replaced Hypertension Continue amlodipine Thrombocytopenia without anemia CT abdomen pelvis shows and coarse echotexture suggestive of underlying hepatocellular disease If after treatment of infection thrombocytopenia does not improve it could be due to a chronic liver disease Patient will need to be referred to hematology for further work-up if thrombocytopenia does not improve There is no splenomegaly. Transaminitis Likely due to infection. Urge incontinence Continue oxybutynin Plan/VTE VTE Prophylaxis Ordered?: Yes VS, I&O, 24H, Fishbone Vital Signs/I&O Vital Signs Date Time Temp Pulse Resp B/P (MAP) Pulse Ox O2 Delivery O2 Flow Rate FiO2 10/08/20 08:07 114 130/71 10/08/20 06:00 98.9 18 96 Room Air 10/07/20 18:15 1.0 I&O- Last 24 Hours up to 6 AM 10/08/20 06:00 Intake Total 1615 ml Output Total 850 ml Balance 765 ml Laboratory Data 24H LABS Laboratory Tests 2 10/07/20 14:05: Neutrophils (%) (Auto) , Nucleated Red Blood Cells % (auto) 0.0, Neutrophils 75H, Band Neutrophils 17H, Lymphocytes (Manual) 6L, Monocytes (Manual) 1, Metamyelocytes 1H, Red Blood Cell Morphology NORMAL, Platelet Estimate DECREASED, Immature Platelet Fraction 10.7H, Anion Gap 8, Glomerular Filtration Rate 44.7, Lactic Acid Level 1.5, Calcium Level 8.7L, Magnesium Level 1.7L, Total Bilirubin 1.0, Direct Bilirubin 0.5H, Aspartate Amino Transf (AST/SGOT) 135H, Alanine Aminotransferase (ALT/SGPT) 98H, Alkaline Phosphatase 99, Total Creatine Kinase 225H, Creatine Kinase MB < 1.0, Creatine Kinase MB Relative Index 0.44, Troponin I < 0.02, Total Protein 6.7, Albumin 3.3, Albumin/Globulin Ratio 1.0L, Lipase 98 10/07/20 14:13: POC Glucose (Misc Panel) 142H, POC Sodium (Misc Panel) 133L, POC Potassium (Misc Panel) 2.3*L, POC Chloride (Misc Panel) 90L, POC Total CO2 (Misc Panel) 26.0, POC Blood Urea Nitrogen (Misc Panel 23, POC Ionized Calcium (Misc Panel) 4.4L, POC Creatinine (Misc Panel) 1.3, POC Hematocrit (Misc Panel) 43.0 10/07/20 14:33: Urine Color MELODY, Urine Appearance HAZY, Urine pH 6.0, Urine Specific [place] 1.019, Urine Protein 2+H, Urine Glucose (UA) NEGATIVE, Urine Ketones TRACEH, Urine Blood NEGATIVE, Urine Nitrite NEGATIVE, Urine Bilirubin NEGATIVE, Urine Urobilinogen 2.0H, Urine Leukocyte Esterase NEGATIVE, Urine WBC (Auto) 1, Urine RBC (Auto) 4H, Urine Hyaline Casts (Auto) 0, Urine Bacteria (Auto) NEGATIVE, Urine Squamous Epithelial Cells 0, Urine Mucus (Auto) SMALL, Urine Sperm (Auto) 10/07/20 22:11: Anion Gap 12, Glomerular Filtration Rate 57.6, Calcium Level 8.1L, Magnesium Level 1.8 10/08/20 05:50: Neutrophils (%) (Auto) , Nucleated Red Blood Cells % (auto) 0.0, Neutrophils 56, Band Neutrophils 35H, Lymphocytes (Manual) 3L, Monocytes (Manual) 3, Metamyelocytes 1H, Atypical Lymphocytes 2, Dohle Bodies 2+, Platelet Estimate DECREASED, Anion Gap 7L, Glomerular Filtration Rate > 60.0, Calcium Level 8.5L, Magnesium Level 1.7L CBC/BMP Laboratory Tests 10/07/20 14:05 10/07/20 22:11 10/08/20 05:50 Microbiology Microbiology 10/07/20 Blood Culture, Received Pending 10/07/20 Blood Culture, Received Pending 10/07/20 Respiratory Virus Panel (PCR) ([facility]) - Final, Complete HAYES SIMPSON MD Oct 08, 2020 11:04
[2020-10-08 12:39] LABS: HEMATOCRIT 39.9 % (36.0-47.0); MEAN CORPUSCULAR HGB CONC 35.1 g/dl (32.0-36.5); MEAN CORPUSCULAR VOLUME 88.3 fl (80.0-96.0); RED BLOOD COUNT 4.52 10^6/uL (4.00-5.40); WHITE BLOOD COUNT 3.4 10^3/uL (4.0-10.0)
[2020-10-08 12:49] LABS: MAGNESIUM LEVEL 1.8 MG/DL (1.8-2.4); POTASSIUM SERUM 3.4 MEQ/L (3.5-5.1)
[2020-10-08 12:57] LABS: PLATELET COUNT, AUTOMATED 26 10^3/uL (150-450)
[2020-10-08 13:05] LABS: PLTBLUE- EDTA FREE CALC 21 K/mm3 (172-450); PLTBLUE- EDTA FREE MACHINE 19 10^3/uL (172-450)
[2020-10-08 13:21] LABS: LYMPHOCYTES 6 % (16-44); MONOCYTES 6 % (0-5); NEUTROPHILS 70 % (28-66); PLATELET ESTIMATE MARKED DECREASE (NORMAL)
[2020-10-08 14:00] VITALS: BP 117/84
[2020-10-08] MEDS: ACETAMINOPHEN TAB 650MG DOSE (2X325MG) PO PRN (14:40)
[2020-10-08 15:18] LABS: INR 1.02; PROTHROMBIN TIME 13.6 SECONDS (12.5-14.3)
[2020-10-08] MEDS ORDERED: NS 1,000 ML IV ONE (15:45)
[2020-10-08] MEDS: cefTRIAXone SOD 2 GM in D5W MINI-BAG PLUS 50 ML IV SCH (15:49)
--- NOTE | 2020-10-08 16:08 | CR.PDOC ---
General Date of Consultation: Oct 08, 2020 Referring Provider: HAYES DE LA O MD Attending Physician: EDITH REA MD Consultation REASON FOR CONSULTATION/CHIEF COMPLAINT: [Plllt count nooow at 26 k int he distannt past 200K Bands elevated, hgb normal , WBC wnl. loow grade temp, confusion for three days, diarrhea and CT scan LLL lpneumonia.]. HISTORY OF PRESENT ILLNESS: [for last several days, since fri, patient felt tired and according to family connnfused. She also has diarrhea. ]. ALLERGIES: Please see below. HOME MEDICATIONS: Please see below. PAST MEDICAL HISTORY: 1. . 2. . PAST SURGICAL HISTORY: 1. 2. FAMILY HISTORY: Father: Mother: Siblings: Children: Hereditary Diseases: Unexpected deaths due to medical reasons: SOCIAL HISTORY: Marital status and/or living arrangements: Children: Employment: Tobacco use: ETOH: Illicit drug use: IV drug use: Other relevant social factors: REVIEW OF SYSTEMS: CONSTITUTIONAL: [Confusion, mild]. HEENT: [dry oral mucosa]. CARDIOVASCULAR: nl. RESPIRATORY: [no complaints]. GENITOURINARY: [urinates and defecates at the same time with diarrhea]. MUSCULOSKELETAL: [ok]. GASTROINTESTINAL: [urinates and defecates at the same time with diarrhea. SKIN: [dry]. NEUROLOGICAL: [confused and none focal]. PSYCHIATRIC: [confused]. ENDOCRINE: . HEMATOLOGIC/LYMPHATIC: [no ecchymosis]. ALLERGIC/IMMUNOLOGIC: . PHYSICAL EXAMINATION: VITAL SIGNS: Please see below. GENERAL APPEARANCE: [tired appearing lady who keeps picking at her clothing]. HEENT: [dry oral mucosa, neck is supple. I do ot suspect meningitis]. RESPIRATORY: [crackles left lung, right lung is clear]. CARDIOVASCULAR: [S1S2]. ABDOMEN: [epigastric tenderness]. EXTREMITIES: [nl]. NEUROLOGICAL: [confused and non focal]. PSYCHIATRIC: . SKIN: Tenting LABORATORY DATA: Please see below. ASSESSMENT/PLAN: 1. [Infection leading to thrombocytopenia the left shift, confusion. Pneumonia is likely and must consider C Diff. Patient still not able to provide clean stool sample.]. Continue treating pneumonia and please add Flagyl as patient also has the epigastric pain. Will cover C diff if there. 2. [Dehydration secondary to diarrhea may be contributing to confusion. Please increase IV hydration to reverse the dehydration.xsecondary to duiarrhea 3. Continue replacing lytes. 4. Continue to monitor CBC with differential. 5. Patient discussed with Dr De La O. Duration of consult 40 min Vital Signs/I&O Vital Signs Date Time Temp Pulse Resp B/P (MAP) Pulse Ox O2 Delivery O2 Flow Rate FiO2 10/08/20 15:30 98.9 10/08/20 14:00 110 18 117/84 (95) 95 Room Air 10/07/20 18:15 1.0 I&O- Last 24 Hours up to 6 AM 10/08/20 06:00 Intake Total 1615 ml Output Total 850 ml Balance 765 ml Laboratory Data Labs 24H Laboratory Tests 2 10/07/20 22:11: Anion Gap 12, Glomerular Filtration Rate 57.6, Calcium Level 8.1L, Magnesium Level 1.8 10/08/20 05:50: Anion Gap 7L, Glomerular Filtration Rate > 60.0, Calcium Level 8.5L, Magnesium Level 1.7L, Neutrophils (%) (Auto) , Nucleated Red Blood Cells % (auto) 0.0, Neutrophils 56, Band Neutrophils 35H, Lymphocytes (Manual) 3L, Monocytes (Manual) 3, Metamyelocytes 1H, Atypical Lymphocytes 2, Dohle Bodies 2+, Platelet Estimate DECREASED 10/08/20 12:08: Magnesium Level 1.8, Neutrophils (%) (Auto) , Nucleated Red Blood Cells % (auto) 0.0, Neutrophils 70H, Band Neutrophils 18H, Lymphocytes (Manual) 6L, Monocytes (Manual) 6H, Platelet Estimate MARKED DECREASE, Platelet Count, EDTA Free 21*L 10/08/20 14:56: Prothrombin Time 13.6, Prothromb Time International Ratio 1.02, Activated Partial Thromboplast Time 47.0H, Fibrinogen 310 CBC/BMP Laboratory Tests 10/07/20 22:11 10/08/20 05:50 10/08/20 12:08 Microbiology Microbiology 10/07/20 Blood Culture - Preliminary, Resulted No growth after 24 hours . All specim... 10/07/20 Blood Culture - Preliminary, Resulted No growth after 24 hours . All specim... 10/07/20 Respiratory Virus Panel (PCR) ([facility]) - Final, Complete Allergies Coded Allergies: Penicillins (Verified Allergy, Unknown, 10/07/20) celecoxib (Verified Allergy, Unknown, 10/07/20) soap (Verified Adverse Reaction, Unknown, tide causes itching, 10/07/20) Home Medications Scheduled Amlodipine Besylate (Amlodipine Besylate) 5 Mg Tablet, 5 MG PO DAILY, (Reported) Astaxanthin (Astaxanthin) 4 Mg Capsule, 4 MG PO DAILY, (Reported) Cholecalciferol (Vitamin D3) (Vitamin D3) 1,000 Unit Tablet, 1,000 UNITS PO DAILY, (Reported) Krill/Om3/Dha/Epa/Om6/Lip/Astx (Krill Oil 1,000 mg Softgel) 1 Each Capsule, 1 CAP PO DAILY, (Reported) Oxybutynin Chloride (Oxybutynin Chloride ER) 10 Mg Tab.er.24, 10 MG PO DAILY, (Reported) Triamterene/Hydrochlorothiazid (Triamterene-Hctz 37.5-25 mg Tb) 1 Each Tablet, 1 TAB PO DAILY, (Reported) [Tumeric] , 400 MG PO DAILY, (Reported) EDITH REA MD Oct 08, 2020 16:08
[2020-10-08] MEDS: PANTOPRAZOLE 40MG VIAL (C9113 PER 1) IV SCH (16:43)
[2020-10-08] MEDS: metroNIDAZOLE 500 MG in IV 1 EA IV SCH (18:49)
[2020-10-08] MEDS: AZITHROMYCIN INJ 500 MG, VIAL MATE ADAPTER 1 EACH in NS 250 ML IV SCH (20:38)
[2020-10-08 22:00] VITALS: BP 110/63
[2020-10-09] VITALS (11 sets, daily range): BP systolic 60–122; BP diastolic 40–65
[2020-10-09] MEDS: metroNIDAZOLE 500 MG in IV 1 EA IV SCH ×3 (02:26→18:41)
[2020-10-09 08:13] LABS: HEMATOCRIT 37.2 % (36.0-47.0); MEAN CORPUSCULAR HEMOGLOBIN 30.8 pg (27.0-33.0); MEAN CORPUSCULAR HGB CONC 34.9 g/dl (32.0-36.5); MEAN CORPUSCULAR VOLUME 88.2 fl (80.0-96.0); RED BLOOD COUNT 4.22 10^6/uL (4.00-5.40); WHITE BLOOD COUNT 3.6 10^3/uL (4.0-10.0)
[2020-10-09 08:36] LABS: BLOOD UREA NITROGEN 15 MG/DL (7-18); CALCIUM LEVEL 7.5 MG/DL (8.8-10.2); CARBON DIOXIDE LEVEL 24 MEQ/L (21-32); CHLORIDE LEVEL 98 MEQ/L (98-107); GLOMERULAR FILTRATION RATE > 60.0 (>32); GLUCOSE, FASTING 113 MG/DL (70-100); POTASSIUM SERUM 3.3 MEQ/L (3.5-5.1); SODIUM LEVEL 131 MEQ/L (136-145)
[2020-10-09] MEDS: oxyBUTYnin *DITROPAN XL* 5 MG TABCR PO SCH (08:47)
[2020-10-09 08:48] LABS: PLATELET COUNT, AUTOMATED 20 10^3/uL (150-450)
[2020-10-09] MEDS: POTASSIUM CHLORIDE 10 MEQ SR TABLET PO SCH (08:48)
[2020-10-09 08:53] LABS: ATYPICAL LYMPH 9 % (0-5); LYMPHOCYTES 12 % (16-44); MONOCYTES 1 % (0-5); NEUTROPHILS 68 % (28-66)
[2020-10-09 08:55] LABS: ANISOCYTOSIS 1+; PLATELET ESTIMATE MARKED DECREASE (NORMAL)
--- NOTE | 2020-10-09 10:57 | IPNPDOC ---
Subjective Date Seen The patient was seen on 10/09/20. Subjective Chief Complaint/HPI Had a temp of 101.3 yesterday afternoon. Continues to have loose bowel movements . unfortunately we have not been able to collect a good stool sample yet. No SOb , no cough. Did report that she felt dizzy last night when she was going to the bathroom. Objective Physical Examination General Exam: Positive: Alert, Cooperative, No Acute Distress Eye Exam: Positive: PERRLA, Conjunctiva & lids normal, EOMI; Negative: Sclera icteric ENT Exam: Positive: Atraumatic, Mucous membr. moist/pink, Pharynx Normal Neck Exam: Positive: Supple; Negative: JVD, thyromegaly Chest Exam: Positive: Normal air movement, Other (Crackles at the left base) Heart Exam: Positive: Rate Normal, Regular Rhythm, Normal S1, Normal S2; Negative: Murmurs, Rubs Telemetry: Positive: No significant arrhythmia Abdomen Exam: Positive: Normal bowel sounds, Soft; Negative: Tenderness, Hepatospenomegaly Extremity Exam: Negative: Clubbing, Cyanosis, Edema Assessment /Plan Assessment 85-year-old female with past medical history of hypertension, hyperlipidemia, osteopenia presented to the emergency room with 3 days history of malaise, weakness, tiredness, poor appetite, and excessive sleepiness. She reported that she has been so tired that for the past 2 days she has been just sleeping all day long so today at the insistence of her daughter went to the urgent care where she was told that she is dehydrated and they instructed her to come to the emergency room. At the emergency room her temperature on presentation was 100.6. Lab work in the emergency room was significant for a band of 17% and platelet of 33. She also had a potassium of 2.4 and a magnesium of 1.7. Her AST and ALT were mildly elevated. A CT abdomen and pelvis done in the emergency room showed a course echotexture of the liver diverticulosis without any diverticulitis. There was no acute abdominopelvic pathology. She also had a CTA of the chest Mild bibasilar atelectasis and small left lower lobe/lingular consolidations suggesting acute pneumonia. It was negative for pulmonary embolism. She was admitted for left lower lobe pneumonia hypokalemia and hypomagnesemia. Left lower lobe pneumonia with bandemia WBC is normal however has elevated bands We will continue with ceftriaxone, azithromycin and metronidazole. Added for anaerobic coverage for GI. Blood cultures sent Diarrhea no stool sample yet. Thrombocytopenia without anemia or splenomegaly. There is left shift with high bands. Likely due to infection fibrinogen normal. Appreciate hematology consultation. CT abdomen pelvis shows and coarse echotexture suggestive of underlying hepatocellular disease Hypokalemia and hypomagnesemia and hyponatremia replaced Hypertension BP low normal in hospital . will hold amlodipine. Transaminitis Likely due to infection. Urge incontinence Continue oxybutynin Plan/VTE VTE Prophylaxis Ordered?: Yes VS, I&O, 24H, Fishbone Vital Signs/I&O Vital Signs Date Time Temp Pulse Resp B/P (MAP) Pulse Ox O2 Delivery O2 Flow Rate FiO2 10/09/20 06:00 99.0 86 17 103/59 (74) 92 Room Air 10/07/20 18:15 1.0 I&O- Last 24 Hours up to 6 AM 10/09/20 05:59 Intake Total 2945 ml Output Total 1200 ml Balance 1745 ml Laboratory Data 24H LABS Laboratory Tests 2 10/08/20 12:08: Neutrophils (%) (Auto) , Nucleated Red Blood Cells % (auto) 0.0, Neutrophils 70H, Band Neutrophils 18H, Lymphocytes (Manual) 6L, Monocytes (Manual) 6H, Platelet Estimate MARKED DECREASE, Platelet Count, EDTA Free 21*L, Magnesium Level 1.8 10/08/20 14:56: Prothrombin Time 13.6, Prothromb Time International Ratio 1.02, Activated Partial Thromboplast Time 47.0H, Fibrinogen 310 10/08/20 20:05: CBC/BMP Laboratory Tests 10/08/20 12:08 Microbiology Microbiology 10/07/20 Blood Culture - Preliminary, Resulted No growth after 24 hours . All specim... 10/07/20 Blood Culture - Preliminary, Resulted No growth after 24 hours . All specim... 10/07/20 Respiratory Virus Panel (PCR) ([facility]) - Final, Complete HAYES SIMPSON MD Oct 09, 2020 07:56
--- NOTE | 2020-10-09 11:26 | IPNPDOC ---
Date Seen The patient was seen on 10/09/20. Progress Note SUBJECTIVE: Patient is a [85]-year-old [] [lady] with [with fatigue, dehydration and confusion. The latter has improved today. Diarrhea still an issue although a bit less frequent since yesterday. No success with obtaining C. Doff.] OBJECTIVE PHYSICAL EXAMINATION: VITAL SIGNS: Please see below. GENERAL: [fatigued and dry oral mucosa much less confusion compared to yesterday PM] HEENT: [non focal dry oral mucose] CARDIOVASCULAR: [S1S2]. RESPIRATORY: [Crackles on left]. ABDOMINAL: [no tenderness and no epigastric tenderness, an improvement from yesterday PM] EXTREMITIES: [no edema] NEUROLOGICAL: [non-focal, less confused] PSYCHOLOGICAL: [less confused] LABORATORY DATA, IMAGING STUDIES, MICROBIOLOGY: Please see below. Echocardiogram: . DVT prophylaxis ordered?: ASSESSMENT AND PLAN: This is a -year-old [RACE] [GENDER] with . PROBLEMS: 1. [infection, pneumonia and perhaps c iff. Continue antibiotics.]: . 2. [Dehydration continue rehydration PO and IV as needed. : [Thrombocytopenia secondary to infection continue to monitor and transfuse platelet for plt count under 15K. Appears to be stabilizing]. 3. [Elevated bands likely secondary to infection, now markedly improved.]: . DISPOSITION: [Home if improved within several days. Patient may become deconditioned and may require sub-acute rehab on discharge. I communicated with Dr De La O. ]. VS, I&O, 24H, Fishbone Vital Signs/I&O Vital Signs Date Time Temp Pulse Resp B/P (MAP) Pulse Ox O2 Delivery O2 Flow Rate FiO2 10/09/20 06:00 99.0 86 17 103/59 (74) 92 Room Air 10/07/20 18:15 1.0 I&O- Last 24 Hours up to 6 AM 10/09/20 06:00 Intake Total 2925 ml Output Total 900 ml Balance 2025 ml Laboratory Data 24H LABS Laboratory Tests 2 10/08/20 12:08: Neutrophils (%) (Auto) , Nucleated Red Blood Cells % (auto) 0.0, Neutrophils 7 0H, Band Neutrophils 18H, Lymphocytes (Manual) 6L, Monocytes (Manual) 6H, Platelet Estimate MARKED DECREASE, Platelet Count, EDTA Free 21*L, Magnesium Level 1.8 10/08/20 14:56: Prothrombin Time 13.6, Prothromb Time International Ratio 1.02, Activated Partial Thromboplast Time 47.0H, Fibrinogen 310 10/08/20 20:05: 10/09/20 07:54: Neutrophils (%) (Auto) , Nucleated Red Blood Cells % (auto) 0.0, Neutrophils 68H, Band Neutrophils 10, Lymphocytes (Manual) 12L, Monocytes (Manual) 1, Platelet Estimate MARKED DECREASE, Atypical Lymphocytes 9H, Anisocytosis 1+, Im mature Platelet Fraction 15.1H, Anion Gap 9, Glomerular Filtration Rate > 60.0, Calcium Level 7.5L CBC/BMP Laboratory Tests 10/08/20 12:08 10/09/20 07:54 Microbiology Microbiology 10/07/20 Blood Culture - Preliminary, Resulted No growth after 24 hours . All specim... 10/07/20 Blood Culture - Preliminary, Resulted No growth after 24 hours . All specim... 10/07/20 Respiratory Virus Panel (PCR) ([facility]) - Final, Complete EDITH REA MD Oct 09, 2020 11:26
[2020-10-09 12:50] LABS: CLOSTRIDIUM DIFFICILE PCR NEGATIVE (NEGATIVE)
[2020-10-09] MEDS: KCL 40MEQ IN D5/NS 1000ML 1,000 ML IV SCH ×2 (14:32→23:06)
[2020-10-09] MEDS: PANTOPRAZOLE 40MG VIAL (C9113 PER 1) IV SCH (17:13)
[2020-10-09] MEDS: cefTRIAXone SOD 2 GM in D5W MINI-BAG PLUS 50 ML IV SCH (17:13)
[2020-10-09] MEDS: AZITHROMYCIN INJ 500 MG, VIAL MATE ADAPTER 1 EACH in NS 250 ML IV SCH (19:59)
[2020-10-09] MEDS: ACETAMINOPHEN TAB 650MG DOSE (2X325MG) PO PRN (20:31)
[2020-10-09 21:40] LABS: POTASSIUM SERUM 3.1 MEQ/L (3.5-5.1)
[2020-10-09] MEDS ORDERED: POTASSIUM CHLORIDE 10 MEQ SR TABLET PO ONE (21:50)
[2020-10-09 22:00] LABS: MAGNESIUM LEVEL 1.3 MG/DL (1.8-2.4)
[2020-10-09] MEDS ORDERED: NS 1,000 ML IV ONE (22:40)
[2020-10-09] MEDS: MAG SULF 1GM/100ML (MAG RUN) 1 GM in IV 1 EA IV SCH (23:02)
[2020-10-09 23:11] LABS: HEMATOCRIT 33.4 % (36.0-47.0); HEMOGLOBIN 11.7 g/dl (12.0-15.5); LYMPH # 1.3 10^3/uL (1.5-5.0); LYMPH % 31.3 % (24.0-44.0); MEAN CORPUSCULAR HEMOGLOBIN 30.7 pg (27.0-33.0); MEAN CORPUSCULAR VOLUME 87.7 fl (80.0-96.0); MONO # 0.2 10^3/uL (0.0-0.8); MONO % 4.9 % (2.0-8.0); NEUTROPHILS # 2.6 10^3/uL (1.5-8.5); NEUTROPHILS % 62.1 % (36.0-66.0); RED BLOOD COUNT 3.81 10^6/uL (4.00-5.40); WHITE BLOOD COUNT 4.1 10^3/uL (4.0-10.0)
[2020-10-09 23:14] LABS: PLATELET COUNT, AUTOMATED 23 10^3/uL (150-450)
[2020-10-09 23:40] LABS: BLOOD UREA NITROGEN 14 MG/DL (7-18); CALCIUM LEVEL 7.3 MG/DL (8.8-10.2); CARBON DIOXIDE LEVEL 25 MEQ/L (21-32); CHLORIDE LEVEL 99 MEQ/L (98-107); CREATININE FOR GFR 0.81 MG/DL (0.55-1.30); GLOMERULAR FILTRATION RATE > 60.0 (>32); GLUCOSE, FASTING 121 MG/DL (70-100); POTASSIUM SERUM 3.3 MEQ/L (3.5-5.1); SODIUM LEVEL 133 MEQ/L (136-145)
[2020-10-10] VITALS (8 sets, daily range): BP systolic 90–137; BP diastolic 50–71
[2020-10-10] MEDS: MAG SULF 1GM/100ML (MAG RUN) 1 GM in IV 1 EA IV SCH ×2 (00:17→01:26)
[2020-10-10] MEDS: metroNIDAZOLE 500 MG in IV 1 EA IV SCH (01:27)
[2020-10-10] MEDS: KCL 10MEQ/100ML SWI (KRUN) 10 MEQ in IV 1 EA IV SCH ×4 (03:07→08:10)
[2020-10-10 05:01] LABS: HEMATOCRIT 36.9 % (36.0-47.0); HEMOGLOBIN 12.5 g/dl (12.0-15.5); MEAN CORPUSCULAR HEMOGLOBIN 30.1 pg (27.0-33.0); MEAN CORPUSCULAR HGB CONC 33.9 g/dl (32.0-36.5); MEAN CORPUSCULAR VOLUME 88.9 fl (80.0-96.0); RED BLOOD COUNT 4.15 10^6/uL (4.00-5.40)
[2020-10-10 05:05] LABS: PLATELET COUNT, AUTOMATED 22 10^3/uL (150-450)
[2020-10-10 05:15] LABS: BLOOD UREA NITROGEN 12 MG/DL (7-18); CALCIUM LEVEL 7.5 MG/DL (8.8-10.2); CARBON DIOXIDE LEVEL 26 MEQ/L (21-32); CHLORIDE LEVEL 102 MEQ/L (98-107); CREATININE FOR GFR 0.77 MG/DL (0.55-1.30); GLOMERULAR FILTRATION RATE > 60.0 (>32); GLUCOSE, FASTING 111 MG/DL (70-100); POTASSIUM SERUM 3.7 MEQ/L (3.5-5.1); SODIUM LEVEL 134 MEQ/L (136-145)
[2020-10-10 06:01] LABS: ATYPICAL LYMPH 6 % (0-5); LYMPHOCYTES 21 % (16-44); MONOCYTES 6 % (0-5); NEUTROPHILS 66 % (28-66); PLATELET ESTIMATE MARKED DECREASE (NORMAL)
[2020-10-10 06:02] LABS: SMUDGE CELLS 1+
[2020-10-10] MEDS: POTASSIUM CHLORIDE 10 MEQ SR TABLET PO SCH (08:10)
[2020-10-10] MEDS: oxyBUTYnin *DITROPAN XL* 5 MG TABCR PO SCH (08:11)
[2020-10-10] MEDS: metroNIDAZOLE (FLAGYL) 500MG TABLET PO SCH ×2 (08:13→14:39)
[2020-10-10] MEDS: LACTOBACILLUS ACIDOPHILUS CAP (BACID) PO SCH ×3 (08:13→17:56)
--- NOTE | 2020-10-10 08:13 | IPN ---
PROGRESS NOTE DATE: 10/10/2020 SUBJECTIVE: The patient complains of persistent diarrhea, more than ten times but documented to only be three since yesterday. OBJECTIVE: Vitals: T max 103.7, currently 96.3, pulse is 76, respiratory rate 22, blood pressure 116/61, 94% on two liters. General: Awake, alert, oriented x3, no pallor, icterus, jaundice. Lungs: Crackles at the left base. Heart: S1, S2, sinus. Abdomen: Soft, nontender, nondistended, positive bowel sounds. Extremities: No cyanosis or clubbing. Laboratory data, microbiology, imaging studies have been reviewed. ASSESSMENT AND PLAN: An 85-year-old female transferred to PCU yesterday due to persistent diarrhea, diff negative with history of hypertension, dyslipidemia, osteopenia, presented with a three day history of malaise, weakness, poor appetite, sleepiness and found to be dehydrated with bandemia of 17,000 and electrolyte abnormalities with low potassium, magnesium. CT of abdomen and pelvis showed coarse echotexture of the liver, diverticulosis without acute diverticulitis, no other acute abdominal-pelvic pathology. CTA showed left lower lobe pneumonia, negative for PE. CURRENT ISSUES: 1. Left lower lobe pneumonia. 2. Leukopenia. 3. Thrombocytopenia. 4. Hypotension secondary to diarrhea. 5. Diarrhea, negative C. diff, no diverticulitis on CT of abdomen and pelvis. 6. Debility. 7. Electrolyte abnormalities with low potassium, low magnesium, low sodium. 8. Transaminitis most likely due to infection. 9. Urge incontinence. PLAN: Continue with supportive care. The patient had bandemia and fever of 103.7, currently on IV ceftriaxone and azithromycin, awaiting urine Legionella antigen, would be consistent with pneumonia and diarrhea. Since C. diff is negative, the patient may be given antimotility drugs, Bacid and Questran trial. Continue with Flagyl but change to p.o. for now for possible anaerobic coverage. For the thrombocytopenia, no signs of active bleeding, does not require immediate platelet transfusion. Check peripheral blood smear, DIC panel, heparin-induced thrombocytopenia panel and hematology consult if patient starts to bleed.
[2020-10-10 08:17] LABS: MAGNESIUM LEVEL 1.3 MG/DL (1.8-2.4)
[2020-10-10 08:53] LABS: PLATELET COUNT, AUTOMATED 23 10^3/uL (150-450)
[2020-10-10] MEDS ORDERED: MAG SULF 1GM/100ML (MAG RUN) 1 GM in IV 1 EA IV ONE (09:00)
[2020-10-10] MEDS ORDERED: MIDODRINE 5 MG TAB PO ONE (09:00)
[2020-10-10 09:14] LABS: HEMATOCRIT 36.9 % (36.0-47.0)
[2020-10-10 09:25] LABS: INR 0.97; PROTHROMBIN TIME 13.1 SECONDS (12.5-14.3)
[2020-10-10 09:26] LABS: FIBRINOGEN 205 MG/DL (221-452)
[2020-10-10 09:27] LABS: PARTIAL THROMBOPLASTIN TIME 47.2 SECONDS (24.2-38.5)
[2020-10-10 09:54] LABS: D-DIMER QUANT > 4000.0 ng/ml (<500)
[2020-10-10] MEDS: KCL 40MEQ IN D5/NS 1000ML 1,000 ML IV SCH ×2 (10:24→23:28)
[2020-10-10 10:38] LABS: FOLATE > 24.0 NG/ML (>5.4); VITAMIN B12 LEVEL > 2000 PG/ML (247-911)
--- NOTE | 2020-10-10 11:34 | IPNPDOC ---
Date Seen The patient was seen on 10/10/20. Progress Note addendum to progress note: sepsis on admission due to pneumonia -bandemia, 100.6 fever, hr 106 sofa score 4 creatinine 1.2, plt 33 with confusion and transaminitis. VS, I&O, 24H, Fishbone Vital Signs/I&O Vital Signs Date Time Temp Pulse Resp B/P (MAP) Pulse Ox O2 Delivery O2 Flow Rate FiO2 10/10/20 07:52 99.1 72 18 104/57 (73) 98 Nasal Cannula 2.0 I&O- Last 24 Hours up to 6 AM 10/10/20 06:00 Intake Total 3365 ml Output Total 1600 ml Balance 1765 ml Laboratory Data 24H LABS Laboratory Tests 2 10/09/20 11:43: Clostridium difficile [id number] PRESUMPTIVE NEGATIVE, Clostridium difficile Toxin (PCR) NEGATIVE 10/09/20 21:15: Magnesium Level 1.3L 10/09/20 22:57: Magnesium Level 1.3L, Immature Granulocyte % (Auto) 0.7, Neutrophils (%) (Auto) 62.1, Lymphocytes (%) (Auto) 31.3, Monocytes (%) (Auto) 4.9, Eosinophils (%) (Auto) 0.0, Basophils (%) (Auto) 1.0, Neutrophils # (Auto) 2.6, Lymphocytes # ( Auto) 1.3L, Monocytes # (Auto) 0.2, Eosinophils # (Auto) 0.0, Basophils # (Auto) 0.0, Nucleated Red Blood Cells % (auto) 0.0, Anion Gap 9, Glomerular Filtration Rate > 60.0, Lactic Acid Level 1.4, Calcium Level 7.3L 10/10/20 04:38: Neutrophils (%) (Auto) , Nucleated Red Blood Cells % (auto) 0.0, Anion Gap 6L, Glomerular Filtration Rate > 60.0, Calcium Level 7.5L, Neutrophils 66, Band Neutrophils 1, Lymphocytes (Manual) 21, Monocytes (Manual) 6H, Atypical Lymphocytes 6H, Smudge Cells 1+, Platelet Estimate MARKED DECREASE, Differential Slide Review Report, Peripheral Blood Smear Path Consult PERIPHERAL SMEAR 10/10/20 08:32: 10/10/20 08:36: Immature Platelet Fraction 20.0H, Prothrombin Time 13.1, Prothromb Time International Ratio 0.97, Activated Partial Thromboplast Time 47.2H, Fibrinogen 205L, D-Dimer, Quantitative > 4000.0H, Vitamin B12 Level > 2000H, Folate > 24.0 CBC/BMP Laboratory Tests 10/09/20 21:15 10/09/20 22:57 10/10/20 04:38 10/10/20 08:32 10/10/20 08:36 Microbiology Microbiology 10/07/20 Blood Culture - Preliminary, Resulted No Growth after 48 hours. All Specime... 10/07/20 Blood Culture - Preliminary, Resulted No Growth after 48 hours. All Specime... 10/07/20 Respiratory Virus Panel (PCR) ([facility]) - Final, Complete CARL SILVA MD Oct 10, 2020 11:34
[2020-10-10] MEDS: CHOLESTYRAMINE 4 GM PWD PKT PO SCH ×3 (12:58→21:10)
[2020-10-10] MEDS: ACETAMINOPHEN TAB 650MG DOSE (2X325MG) PO PRN (14:54)
[2020-10-10 15:23] LABS: BLOOD UREA NITROGEN 11 MG/DL (7-18); CALCIUM LEVEL 7.6 MG/DL (8.8-10.2); CARBON DIOXIDE LEVEL 25 MEQ/L (21-32); CHLORIDE LEVEL 102 MEQ/L (98-107); CREATININE FOR GFR 0.72 MG/DL (0.55-1.30); GLOMERULAR FILTRATION RATE > 60.0 (>32); GLUCOSE, FASTING 130 MG/DL (70-100); POTASSIUM SERUM 4.3 MEQ/L (3.5-5.1); SODIUM LEVEL 134 MEQ/L (136-145)
[2020-10-10] MEDS ORDERED: IBUPROFEN 400MG TAB PO ONE (16:00)
[2020-10-10] MEDS: cefTRIAXone SOD 2 GM in D5W MINI-BAG PLUS 50 ML IV SCH (16:50)
[2020-10-10] MEDS: PANTOPRAZOLE 40MG VIAL (C9113 PER 1) IV SCH (16:50)
[2020-10-10] MEDS: DOXYCYCLINE HYCLATE 100 MG in D5W MINI-BAG PLUS 100 ML IV SCH (17:56)
[2020-10-10 18:40] LABS: MONO REFLEX EBV COMP NEGATIVE (NEGATIVE)
[2020-10-10] MEDS ORDERED: NS 500 ML IV ONE (21:05)
[2020-10-11 00:30] VITALS: BP 109/51
[2020-10-11 04:15] VITALS: BP 92/52
[2020-10-11 05:22] LABS: HEMATOCRIT 35.2 % (36.0-47.0); MEAN CORPUSCULAR HEMOGLOBIN 30.2 pg (27.0-33.0); MEAN CORPUSCULAR HGB CONC 34.1 g/dl (32.0-36.5); MEAN CORPUSCULAR VOLUME 88.7 fl (80.0-96.0); PLATELET COUNT, AUTOMATED 25 10^3/uL (150-450); RED BLOOD COUNT 3.97 10^6/uL (4.00-5.40); WHITE BLOOD COUNT 8.7 10^3/uL (4.0-10.0)
[2020-10-11 05:41] LABS: BLOOD UREA NITROGEN 12 MG/DL (7-18); CALCIUM LEVEL 7.1 MG/DL (8.8-10.2); CARBON DIOXIDE LEVEL 24 MEQ/L (21-32); CHLORIDE LEVEL 109 MEQ/L (98-107); CREATININE FOR GFR 0.68 MG/DL (0.55-1.30); GLOMERULAR FILTRATION RATE > 60.0 (>32); GLUCOSE, FASTING 113 MG/DL (70-100); POTASSIUM SERUM 4.2 MEQ/L (3.5-5.1); SODIUM LEVEL 140 MEQ/L (136-145)
[2020-10-11 06:21] LABS: ANISOCYTOSIS 1+; ATYPICAL LYMPH 10 % (0-5); LYMPHOCYTES 28 % (16-44); MONOCYTES 16 % (0-5); NEUTROPHILS 46 % (28-66); PLATELET ESTIMATE MARKED DECREASE (NORMAL)
[2020-10-11] MEDS: DOXYCYCLINE HYCLATE 100 MG in D5W MINI-BAG PLUS 100 ML IV SCH ×2 (06:51→18:26)
[2020-10-11] MEDS: CHOLESTYRAMINE 4 GM PWD PKT PO SCH ×4 (07:30→21:35)
[2020-10-11 08:00] VITALS: BP 100/58
[2020-10-11] MEDS: LACTOBACILLUS ACIDOPHILUS CAP (BACID) PO SCH ×3 (08:13→18:26)
[2020-10-11] MEDS: oxyBUTYnin *DITROPAN XL* 5 MG TABCR PO SCH (08:13)
[2020-10-11] MEDS: POTASSIUM CHLORIDE 10 MEQ SR TABLET PO SCH (08:13)
--- NOTE | 2020-10-11 08:48 | CR ---
"CONSULTATION DATE: 10/10/2020 CONSULTATION REQUESTED BY: Dr. Messina REASON FOR CONSULTATION: Fever, thrombocytopenia and malaise. HISTORY OF PRESENT ILLNESS: Mrs. Izaguirre is an 85-year-old very healthy female who presented with a three day history of malaise, weakness, fatigue, poor appetite and excessive sleepiness. The patient stated that she was feeling very cold with chills, but when she checked her temperature at home it was 97, but patient for the past three days has had fevers in the hospital. She also was complaining of some nausea, vomited once at home and had some diarrhea with loose stools. Patient lives in [place] and [facility]. She is outdoors very often. She has a cat, who has not had any ticks. She checks her cat very frequently. She denies any rashes or joint pain. No tick bites, a couple Mosquito bites. The patient was seen by her primary care provider about a month ago and had her regular physical exam for hypertension. Basic labs were done, but no CBC has been done since 2017. CT abdomen and pelvis in the ER showed no acute pathology except for a fatty liver and CT chest was consistent with mild atelectasis with a possibility of small left lower lobe pneumonia. The patient has a very minimal cough, which is dry. No shortness of breath. She denies any pleuritic chest pain. PAST MEDICAL HISTORY: Significant for hypertension, hyperlipidemia, osteopenia, urge incontinence. ALLERGIES: Penicillin, Celebrex and type soap causes itching. HOME MEDICATIONS: 1. Amlodipine 5 mg p.o. daily. 2. Astaxanthin 4 mg daily. 3. Vitamin D 3,000 units daily. 4. Oxybutynin 10 mg p.o. daily. 5. Dyazide 37.5/25 one tablet p.o. daily. 6. Turmeric 400 mg p.o. daily. 7. Cholestyramine 4.0 p.o. AC and HS. 8. Probiotics one tablet p.o. with meals t.i.d. 9. Pantoprazole 40 mg I.V. every 24 hours. 10.Ceftriaxone 2 grams I.V. every 24 hours; currently day #6. 11.Zithromax 500 mg I.V. every 24 hours; day #3. 12.Metronidazole 500 mg I.V. every 8 hours; day #3. PAST SURGICAL HISTORY: Appendectomy, cholecystectomy, inguinal hernia repair x3, partial hysterectomy in her 30's, colonoscopy 2010, cataract surgery, spontaneous pneumothorax with chest tube by Dr. Tobin in August of 2016. FAMILY HISTORY: Father of liver cancer. Mother of Alzheimer's. Siblings with hypertension. SOCIAL HISTORY: She lives alone. She quit smoking in 1984. She drinks alcohol socially. Does not use drugs. She has two daughters; one in the [facility] and one in [place]. REVIEW OF SYSTEMS: Patient complains of being exhausted, fatigued with malaise. She has a mild headache, but no neck stiffness. No rashes. No lesions. No joint pains. She has a mild dry cough that started a couple days ago. No chest pain or shortness of breath. She has some vomiting and diarrhea, which has improved. Denies any dysuria, hematuria or lumbar low back pain. PHYSICAL EXAMINATION: GENERAL: She is a pleasant elderly female in no acute distress. Looks great for her age. NEUROLOGIC: She is alert and oriented x3. She moves all extremities. She is able to sit independently on her own. HEENT: Neck supple with no JVD. No bleeds. No stiffness. No adenopathy. Oropharynx is clear with no lesions. She has her own teeth. Pupils equal and reactive, anicteric. HEART: Normal S1, S2. No murmurs, rubs or gallops. LUNGS: Clear. No wheezes, rales or rhonchi. ABDOMEN: Obese, soft. Tender in the right upper quadrant and epigastric tenderness. No hepatosplenomegaly appreciated. EXTREMITIES: No cyanosis, clubbing or edema. No calf tenderness. Green nail lao that she just had a pedicure she stated. SKIN: With no rash, a few ecchymosis in her right thigh area. LABORATORY DATA: White count 5, hemoglobin 12.5, hematocrit 36.9, platelets 22,000, 66% neutrophils, 21% lymphocytes, 6% monocytes, 6% atypical lymphocytes. Sodium 134, potassium 4.3, chloride 102, bicarb 25, BUN 11, creatinine 0.72, glucose 130, calcium 7.6, magnesium 2. B12 more than 2,000. Folate more than 24. AST 135, ALT 98, alkaline phosphatase 99, CPK 225. Potassium on admission was 2.4. C. diff was negative on 10/09/2020. Snyder screen negative on 10/10/2020. Urine Legionella antigen pending. Blood cultures x2 sets done on 10/07/2020 were negative. Respiratory panel on 10/07/2020 was negative. Urinalysis had 1 white cell and 4 red cells. IMAGING STUDIES: CT abdomen and pelvis showed a fatty liver, but no acute pathology to explain her fevers. CT chest showed possibility of a lingular pneumonia. IMPRESSION: This is an 85-year-old female, previously very healthy for her age, who presented with acute symptoms of fever, malaise, fatigue associated with nausea, vomiting, diarrhea and mild cough. CT chest suggested lingular pneumonia, but patient does not have a significant cough or shortness of breath. O2 sat is 91 to 93% on room air. She denies any tick bites or |rashes, but with her severe thrombocytopenia, tick born illnesses such as anaplasma should be in the differential. Her white count was also low at 3.5. Other differential would include infectious mononucleosis or cytomegalovirus infection that would explain her atypical lymphocytes, leucopenia, thrombocytopenia and abnormal liver function tests. Lyme serology has been sent. PLAN : I have ordered tick born panel that includes anaplasma Babesia, Lyme as well . The patient needs to be treated with Doxycycline 100 mg every 12 hours. Patient does not have neck stiffness or headache currently and therefore meningitis is very unlikely. A lumbar puncture would cause more harm with a platelet of 20,000 and any benefit, she does not have any meningitis. Case has been discussed with Dr. Messina to cancel the lumbar puncture. Continue I.V. Rocephin 2 grams every 24 hours to cover for bacterial pathogens and Lyme disease. Start I.V. Doxycycline 100 mg Q12 hours. Discontinue Zithromax and Flagyl. MTDD"
[2020-10-11] MEDS: MIDODRINE 5 MG TAB PO SCH ×3 (09:05→18:26)
--- NOTE | 2020-10-11 10:38 | IPNPDOC ---
Date Seen The patient was seen on 10/11/20. Progress Note SUBJECTIVE: dry nonproductive cough no chills,n/v/abd pain/h/a. diarrhea improving. tmax 101.2 yesterday OBJECTIVE: Vitals: see below General: Awake, alert, oriented x3, no pallor, icterus, jaundice. Lungs: Crackles at the left base.AEBE Heart: S1, S2, sinus. no bruits. Abdomen: Soft, nontender, nondistended, positive bowel sounds. Extremities: No cyanosis or clubbing. Laboratory data, microbiology, imaging studies have been reviewed. ASSESSMENT AND PLAN: An 85-year-old female transferred to PCU yesterday due to persistent diarrhea, diff negative with history of hypertension, dyslipidemia, osteopenia, presented with a three day history of malaise, weakness, poor appetite, sleepiness and found to be dehydrated with bandemia of 17,000 and electrolyte abnormalities with low potassium, magnesium. CT of abdomen and pelvis showed coarse echotexture of the liver, diverticulosis without acute diverticulitis, no other acute abdominal-pelvic pathology. CTA showed left lower lobe pneumonia, negative for PE. CURRENT ISSUES: 1. Sepsis due to community acquired Left lower lobe pneumonia. 2. Leukopenia. 3. Thrombocytopenia. 4. Hypotension secondary to diarrhea.,resolved 5. Diarrhea, negative C. diff, no diverticulitis on CT of abdomen and pelvis. 6. Debility. 7. Electrolyte abnormalities with low potassium, low magnesium, low sodium, resolved 8. Transaminitis most likely due to infection. 9. Urge incontinence. PLAN: ID consulted and recommends dc flagyl and azithromycin. continue iv ceftriaxone and doxycycline. plts improving and no signs of active bleeding. pt / ot services consulted. continue present mgt. monitor electrolyte abnormalities and supplement as nee ded. ebv pending. monospot screen negative. VS, I&O, 24H, Fishbone Vital Signs/I&O Vital Signs Date Time Temp Pulse Resp B/P (MAP) Pulse Ox O2 Delivery O2 Flow Rate FiO2 10/11/20 08:00 98.6 66 18 100/58 (72) 94 Room Air 10/11/20 00:30 2.0 I&O- Last 24 Hours up to 6 AM 10/11/20 05:59 Intake Total 2960 ml Output Total 2800 ml Balance 160 ml Laboratory Data 24H LABS Laboratory Tests 2 10/10/20 14:54: Anion Gap 7L, Glomerular Filtration Rate > 60.0, Calcium Level 7.6L, Magnesium Level 2.0 10/10/20 17:45: Monoscreen NEGATIVE 10/10/20 19:45: 10/11/20 05:11: Anion Gap 7L, Glomerular Filtration Rate > 60.0, Calcium Level 7.1L, Neutrophils (%) (Auto) , Nucleated Red Blood Cells % (auto) 0.0, Neutrophils 46, Lymphocytes (Manual) 28, Monocytes (Manual) 16H, Atypical Lymphocytes 10H, Anisocytosis 1+, Ovalocytes , Platelet Estimate MARKED DECREASE CBC/BMP Laboratory Tests 10/10/20 14:54 10/11/20 05:11 Microbiology Microbiology 10/07/20 Blood Culture - Preliminary, Resulted No Growth after 72 hours. All specime... 10/07/20 Blood Culture - Preliminary, Resulted No Growth after 72 hours. All specime... 10/07/20 Respiratory Virus Panel (PCR) ([facility]) - Final, Complete CARL SILVA MD Oct 11, 2020 10:38
[2020-10-11] MEDS: KCL 40MEQ IN D5/NS 1000ML 1,000 ML IV SCH ×2 (11:11→17:01)
[2020-10-11 14:00] VITALS: BP 129/67
[2020-10-11] MEDS: cefTRIAXone SOD 2 GM in D5W MINI-BAG PLUS 50 ML IV SCH (17:07)
[2020-10-11] MEDS: PANTOPRAZOLE 40MG VIAL (C9113 PER 1) IV SCH (17:07)
[2020-10-11 20:47] VITALS: BP 121/66
[2020-10-12 02:32] VITALS: BP 126/79
[2020-10-12] MEDS: DOXYCYCLINE HYCLATE 100 MG in D5W MINI-BAG PLUS 100 ML IV SCH ×2 (05:25→17:47)
[2020-10-12 06:15] VITALS: BP 125/68
[2020-10-12 07:21] LABS: HEMOGLOBIN 11.9 g/dl (12.0-15.5); MEAN CORPUSCULAR HEMOGLOBIN 29.8 pg (27.0-33.0); MEAN CORPUSCULAR VOLUME 87.7 fl (80.0-96.0); RED BLOOD COUNT 3.99 10^6/uL (4.00-5.40)
[2020-10-12 07:22] LABS: PLATELET COUNT, AUTOMATED 53 10^3/uL (150-450); WHITE BLOOD COUNT 12.8 10^3/uL (4.0-10.0)
[2020-10-12 07:40] LABS: BLOOD UREA NITROGEN 9 MG/DL (7-18); CALCIUM LEVEL 7.6 MG/DL (8.8-10.2); CARBON DIOXIDE LEVEL 22 MEQ/L (21-32); CHLORIDE LEVEL 112 MEQ/L (98-107); CREATININE FOR GFR 0.64 MG/DL (0.55-1.30); GLOMERULAR FILTRATION RATE > 60.0 (>32); GLUCOSE, FASTING 113 MG/DL (70-100); POTASSIUM SERUM 4.7 MEQ/L (3.5-5.1); SODIUM LEVEL 140 MEQ/L (136-145)
[2020-10-12] MEDS: MIDODRINE 5 MG TAB PO SCH (07:51)
[2020-10-12] MEDS: CHOLESTYRAMINE 4 GM PWD PKT PO SCH ×4 (07:51→21:59)
[2020-10-12] MEDS: LACTOBACILLUS ACIDOPHILUS CAP (BACID) PO SCH ×3 (07:51→17:11)
[2020-10-12 08:03] LABS: ATYPICAL LYMPH 1 % (0-5); LYMPHOCYTES 67 % (16-44); MONOCYTES 6 % (0-5); NEUTROPHILS 26 % (28-66)
[2020-10-12 08:04] LABS: PLATELET ESTIMATE DECREASED (NORMAL)
--- NOTE | 2020-10-12 09:03 | ECGEPIP ---
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
[2020-10-12 09:08] LABS: FREE THYROXINE INDEX 2.6 % (1.3-4.8); T UPTAKE 37 % (30-39); THYROXINE (T4) 7.1 UG/DL (4.5-12.0)
[2020-10-12] MEDS: oxyBUTYnin *DITROPAN XL* 5 MG TABCR PO SCH (10:09)
[2020-10-12] MEDS: KCL 40MEQ IN D5/NS 1000ML 1,000 ML IV SCH (10:09)
[2020-10-12] MEDS: POTASSIUM CHLORIDE 10 MEQ SR TABLET PO SCH (10:09)
[2020-10-12 12:00] VITALS: BP 124/78
[2020-10-12] MEDS ORDERED: KCL 40MEQ IN D5/NS 1000ML 1,000 ML IV SCH (12:00)
--- NOTE | 2020-10-12 12:33 | IPN ---
PROGRESS NOTE DATE: 10/12/2020 SUBJECTIVE: Nursing has noted an irregular rhythm of the heart this morning on routine vital signs. She was noted on EKG to have no P waves and therefore, diagnosed with atrial fibrillation and transferred to the telemetry unit. However, the patient's rate has been rate controlled at 54 to 71. She has no new complaints of diaphoresis, palpitations, lightheadedness, shortness of breath, chest pain, or pressure. The patient says that her cough is improving, is small in amount, and scant. She has had no bright red blood per rectum, melena, or gingival bleeding despite platelet count of 25,000 improved to 53,000 today. The patient currently is ambulating well and does not get dyspneic. Her white count is elevated today at 12.8 currently on ceftriaxone and doxycycline without any fever or chills overnight. She remains on IV fluids due to recent diarrhea, but potassium level is 4.7 and potassium has been discontinued. The patient denies any recurrent episodes of large watery diarrhea. She currently is working well with physical therapy and ambulating from bed to the bathroom with assistance without any syncopal episode or lower extremity weakness. OBJECTIVE: VITAL SIGNS: Temperature 98.4, pulse 55 irregularly irregular, respiratory rate 17, blood pressure 125/68, 95% on room air. GENERAL: The patient is awake, alert, and oriented to person, place, and time. Answering questions appropriately. HEENT: Face is symmetric. Tongue is midline. LUNGS: Diminished with fine crackles at the left base and otherwise no wheezing or rales. HEART: S1, S2, irregularly irregular, bradycardic. ABDOMEN: Soft, nontender, and nondistended with positive bowel sounds. EXTREMITIES: No cyanosis or clubbing. DIAGNOSTIC STUDIES: Laboratory data, imaging studies, and microbiology have all been reviewed. EKG sinus rhythm with first-degree AV block, premature atrial complexes, and anterior infarct age undetermined with rate of 64. ASSESSMENT: This is an 85-year-old female found to have an irregular heart rate with premature atrial contractions (PACS) and first-degree atrioventricular (AV) block on EKG admitted on 10/07/2020, with complaints of nausea, vomiting, headache, and watery diarrhea found to have bandemia of 17 and platelet count of 33,000. CT chest shows left lower lobe infiltrate suggestive of community-acquired pneumonia. CT abdomen was negative. C. diff was negative. The patient is currently on ceftriaxone and doxycycline with increasing white count. Platelet count has slightly recovered from admission of 33,000 currently at 53,000 without active bleeding. Active issues are as follows: 1. Community-acquired pneumonia left lower lobe afebrile, but with increasing white count. 2. Sepsis secondary to community-acquired left lower lobe pneumonia. Currently on ceftriaxone and doxycycline managed by infectious disease specialist. Blood cultures are negative. 3. Thrombocytopenia most likely due to sepsis. Rule out myelodysplasia. No acute indication for platelet transfusion as she has no signs of active bleeding and platelet count is above 10,000. Asphalt Raker felt that this was due to acute infection and no plans for bone marrow biopsy. 4. Abnormal EKG with a regular rhythm and has PACs, but sinus with first-degree AV block. The patient has been transferred to telemetry unit. If no atrial fibrillation (AFib) is noted over the next 12 hours, may transfer back to [facility] with telemetry. 5. Physical therapy (PT) consult and transitioning to p.o. antibiotics in one to two days.
[2020-10-12 16:00] VITALS: BP 119/66
[2020-10-12] MEDS: PANTOPRAZOLE 40MG VIAL (C9113 PER 1) IV SCH (17:11)
[2020-10-12] MEDS: cefTRIAXone SOD 2 GM in D5W MINI-BAG PLUS 50 ML IV SCH (17:11)
--- NOTE | 2020-10-12 21:42 | IPN ---
INFECTIOUS DISEASE PROGRESS NOTE DATE: 10/12/2020 SUBJECTIVE: Fidelina seems to be doing well. She denies any nausea, vomiting or diarrhea. She states her bowel movements are soft but they are not watery anymore. She has been on Cholestyramine. She had atrial fibrillation and therefore was transferred to a monitored bed but was placed in the ICU. She is currently day number five of IV Rocephin which will be discontinued today and day number three of IV Doxycycline. OBJECTIVE: PHYSICAL EXAMINATION: VITAL SIGNS: Temperature is 98.4, pulse 65, respirations 17, blood pressure 119/66, O2 sat is 97% on room air. NECK: No adenopathy. No stiffness. HEART: Normal S1, S2, no murmurs, rubs or gallops. Irregular. LUNGS: Clear, no rales, rhonchi or wheezes. ABDOMEN: Soft, nontender, no hepatosplenomegaly. EXTREMITIES: No clubbing, cyanosis, or edema. LABORATORY STUDIES: White count is 12.8, hemoglobin 11.9, hematocrit 35, platelet count 53 which have increased from 23, 26% neutrophils, 57% lymphocytes, 6% monocytes. Sodium 140, potassium 4.7, chloride 112, bicarbonate 22, BUN 9, creatinine 0.64, glucose 113, calcium 7.6. Heparin induced antibodies 0.09 which is negative. C-difficile PCR was negative. Urine legionaire antigen was negative. Monoscreen negative. EBV IgM is pending. Lyme and tick borne panel, PCR are pending. ABG serology is pending. Blood cultures two sets are negative. Respiratory panel is negative. IMPRESSION: Fever in an 85-year-old female who is very healthy, associated with thrombocytopenia and abnormal LFT The patient has defervesced after 24 hours of Doxycycline. She has received 5 days of IV Rocephin. DDX tick born disease including anaplasma, Lyme babesia PLAN: 1. Discontinue IV Rocephin. 2. Switch IV Doxycycline to p.o. Doxycycline. 3. The patient could be discharged home once clinically stable from an infectious disease standpoint. 4. Please give her a total of 10 days of Doxycycline day #3 5. She could follow up in my office in one week after discharge. 6. Follow up on tick borne panel. 7. Discontinue IV Pantoprazole and switch to p.o. Pantoprazole as needed. MTDD
[2020-10-12 22:30] VITALS: BP 109/59
[2020-10-13 00:26] VITALS: BP 117/72
[2020-10-13 06:00] VITALS: BP 118/81
[2020-10-13 06:22] LABS: HEMATOCRIT 36.7 % (36.0-47.0); HEMOGLOBIN 12.6 g/dl (12.0-15.5); MEAN CORPUSCULAR HEMOGLOBIN 29.9 pg (27.0-33.0); MEAN CORPUSCULAR HGB CONC 34.3 g/dl (32.0-36.5); MEAN CORPUSCULAR VOLUME 87.2 fl (80.0-96.0); PLATELET COUNT, AUTOMATED 110 10^3/uL (150-450); RED BLOOD COUNT 4.21 10^6/uL (4.00-5.40)
[2020-10-13 06:34] LABS: WHITE BLOOD COUNT 15.2 10^3/uL (4.0-10.0)
[2020-10-13 06:45] LABS: BLOOD UREA NITROGEN 11 MG/DL (7-18); CALCIUM LEVEL 7.7 MG/DL (8.8-10.2); CARBON DIOXIDE LEVEL 25 MEQ/L (21-32); CHLORIDE LEVEL 107 MEQ/L (98-107); CREATININE FOR GFR 0.66 MG/DL (0.55-1.30); GLOMERULAR FILTRATION RATE > 60.0 (>32); GLUCOSE, FASTING 95 MG/DL (70-100); MAGNESIUM LEVEL 1.3 MG/DL (1.8-2.4); POTASSIUM SERUM 4.4 MEQ/L (3.5-5.1); SODIUM LEVEL 138 MEQ/L (136-145)
[2020-10-13 07:09] LABS: ANISOCYTOSIS 1+; ATYPICAL LYMPH 18 % (0-5); BASOPHILS 1 % (0-1); LYMPHOCYTES 45 % (16-44); MONOCYTES 8 % (0-5); MYELOCYTES 1 % (0-0); NEUTROPHILS 27 % (28-66); PLATELET ESTIMATE DECREASED (NORMAL); POIKILOCYTOSIS 1+
[2020-10-13] MEDS ORDERED: MAG SULF 1GM/100ML (MAG RUN) 1 GM in IV 1 EA IV ONE ×3 (08:45→11:00)
[2020-10-13] MEDS: LACTOBACILLUS ACIDOPHILUS CAP (BACID) PO SCH ×2 (08:50→11:20)
[2020-10-13] MEDS: oxyBUTYnin *DITROPAN XL* 5 MG TABCR PO SCH (08:50)
[2020-10-13] MEDS: POTASSIUM CHLORIDE 10 MEQ SR TABLET PO SCH (08:50)
[2020-10-13] MEDS: CHOLESTYRAMINE 4 GM PWD PKT PO SCH ×2 (08:50→11:19)
[2020-10-13] MEDS ORDERED: PROT1TAB2 PO (08:53)
[2020-10-13] MEDS ORDERED: BACI1CAP PO (08:53)
[2020-10-13] MEDS ORDERED: DOXY100T PO (08:53)
[2020-10-13] MEDS ORDERED: SELF1KIT MC (08:54)
[2020-10-13] MEDS ORDERED: DOXYCYCLINE HYCLATE 100MG TABLET PO SCH (09:00)
--- NOTE | 2020-10-13 10:04 | DSES ---
DISCHARGE SUMMARY DATE OF ADMISSION: 10/07/2020 DATE OF DISCHARGE: 10/13/2020 GLOBAL COMPENSATION MANAGER: Luis Alfredo Aguero M.D. infectious disease specialist. PRIMARY DISCHARGE DIAGNOSES: 1. Fever of unknown origin with possible tick borne illness, suggests Lyme disease. The patient is to complete 14 days of doxycycline. 2. Thrombocytopenia. 3. Abnormal EKG with sinus bradycardia, first-degree atrioventricular (AV) block, and premature atrial contractions (PACS). 4. Left lower lobe pneumonia community-acquired. 5. Sepsis secondary to community-acquired left lower lobe pneumonia. DISCHARGE MEDICATIONS: 1. Doxycycline 100 mg b.i.d. to complete a 14-day course; 11 more days as outpatient. 2. Bacid one tablet with meals and h.s. 3. Protonix 40 daily. 4. Norvasc 5 daily; check blood pressure prior to taking Norvasc and hold if systolic pressure is less than 120. 5. Astaxanthin 4 mg daily. 6. Vitamin D 1000 units daily. 7. Krill oil one cap daily. 8. Oxybutynin 10 daily. 9. Tumeric 400 daily. HOSPITAL COURSE: This is an 85-year-old female admitted due to complaints of cough, shortness of breath, nausea, vomiting, diarrhea, and headache. Found to have a left lower lobe pneumonia with significant bandemia and thrombocytopenia on admission with no signs of active GI bleed or gingival bleeding. The patient had been started on ceftriaxone and doxycycline. Dr. Aguero was consulted due to persistent thrombocytopenia and Lyme titers were obtained. Ceftriaxone was discontinued and the patient was kept on doxycycline. The patient had increasing white count 15,000, afebrile. She had electrolyte abnormalities and was given magnesium supplementation. The patient had improved platelet count from 23,000 to 110,000 as the infection improved. She passed a home safety evaluation and discharged in a stable condition to complete 11 more days of doxycycline as an outpatient. DISCHARGE PHYSICAL EXAMINATION: VITAL SIGNS: Temperature 97.6, pulse 94, respiratory rate 18, blood pressure 118/81, 95% on room air. GENERAL: Awake, alert, and oriented x3. Answering questions appropriately, in no distress. No use of respiratory accessory muscle uses. NECK: No JVD, thyromegaly, or cervical lymphadenopathy. LUNGS: Diminished with left lower lobe crackles. HEART: S1, S2 sinus rhythm. ABDOMEN: Soft, nontender, and nondistended. Positive bowel sounds. EXTREMITIES: No cyanosis, clubbing, or pitting edema. DIAGNOSTIC STUDIES: Laboratory data, microbiology, and imaging studies have been reviewed and seen in the chart. DISCHARGE INSTRUCTIONS: Follow-up with Dr. Aguero within seven days of discharge. Follow-up with primary care within five days of discharge.
[2020-10-13 15:17] LABS: CYTOMEGALOVIRUS IgM ANTIBODY <30.0 AU/mL (0.0-29.9); EBV AB TO NUCLEAR ANTIGEN <18.0 U/mL (0.0-17.9); EBV VIRAL CAPSID AG IgM <36.0 U/mL (0.0-35.9)
[2020-10-13 23:08] LABS: BODY FLUID CULTURE Not indicated. (.); CMV QUANT DNA PCR, URINE Negative copies/mL (Negative); LEGIONELLA ANTIGEN URINE Negative (Negative); ORGANISM ID Not indicated. (.); SPECIMEN SOURCE Urine (.); URINE STREP PNEUMONIAE ANTIGEN Negative (Negative)
--- NOTE | 2020-10-14 00:24 | ECHO ---
ECHOCARDIOGRAM DATE OF PROCEDURE: 10/12/2020 Age: 85 Gender: Female Height: Weight: REFERRING PHYSICIAN: Dr. Abi Messina PATIENT LOCATION: Room 3201 REASON FOR TESTING: Cardiac dysrhythmia MEASUREMENTS: 2D Measurement IVS 0.9 cm LV 4.7 cm LVPW 1.0 cm LA 2.7 cm Aorta 3.7 cm IVC N/A DOPPLER MEASUREMENT Peak velocity across the LVOT 0.87 m/s 2D COMMENTS: 1. Normal left ventricular size, wall thickness, and low normal global left ventricular systolic function. The estimated left ventricular systolic ejection fraction is 55-60%. 2. Normal left atrium. Normal right atrium and right ventricle. 3. The atrial septum appeared to be normal without evidence of defect or shunt. 4. Borderline dilated aortic root at 3.7 cm. 5. Trace pericardial effusion. No evidence of cardiac tamponade. 6. Mildly calcified aortic valve with normal leaflet excursion. Mildly calcified mitral annulus with normal anterior mitral valve leaflet motion. Normal tricuspid valve. The pulmonic valve and proximal pulmonary artery branches were not well visualized. 7. The inferior vena cava was not visualized. DOPPLER: aortic regurgitation detected. Assessment of the left ventricular diastolic function was limited. IMPRESSION: 1. Normal global left ventricular systolic function. Assessment of the left ventricular diastolic function was limited. 2. Aortic valve sclerosis with mild aortic regurgitation, but no aortic stenosis. 3. Trace pericardial effusion. No evidence of cardiac tamponade.
== END 2020-10-13 12:50 | disposition home health service (06) | DRG 871 ==
LOC: M ED 13:04 → M ED INP 16:23 → M MSPAV 21:00 → M PCU 10-09 23:57 → M MS5PR 10-11 13:42 → M ICU 10-12 10:41 → M MSPAV 10-13 00:24
PROVIDERS: ADMIT Internal Medicine Nephrology; ATTEND General Practice
DX: A41.9 Sepsis, unspecified organism (principal); J18.9 Pneumonia, unspecified organism; E87.1 Hypo-osmolality and hyponatremia; A69.20 Lyme disease, unspecified; E87.6 Hypokalemia; E83.42 Hypomagnesemia; D69.59 Other secondary thrombocytopenia; R19.7 Diarrhea, unspecified; R74.01 Elevation of levels of liver transaminase levels; I49.1 Atrial premature depolarization; I44.0 Atrioventricular block, first degree; Z79.899 Other long term (current) drug therapy; Z88.0 Allergy status to penicillin; Z88.8 Allergy status to other drugs, medicaments and biological substances; Z98.41 Cataract extraction status, right eye; Z98.42 Cataract extraction status, left eye

== ENCOUNTER → 2020-10-20 | Outpatient (REF) | payer MEDICARE ==
[~2020-10-20] MED LIST changes: +AMLO1TAB24 PO; +ASTA4CAP PO; +BACI1CAP PO; +D31000TA2 PO; +DOXY100T PO; +KRIL1000 PO; +OXYB10TA23 PO; +PROT1TAB2 PO; +SELF1KIT MC; +TRIA37.5 PO; +TUMERIC PO
[2020-10-20 12:48] LABS: BASO # 0.1 10^3/uL (0.0-0.2); BASO % 0.6 % (0.0-1.0); EOS % 0.4 % (0.0-3.0); HEMOGLOBIN 12.2 g/dl (12.0-15.5); LYMPH # 4.2 10^3/uL (1.5-5.0); LYMPH % 39.7 % (24.0-44.0); MEAN CORPUSCULAR HEMOGLOBIN 30.3 pg (27.0-33.0); MEAN CORPUSCULAR HGB CONC 32.1 g/dl (32.0-36.5); MEAN CORPUSCULAR VOLUME 94.3 fl (80.0-96.0); MONO % 9.8 % (2.0-8.0); NEUTROPHILS # 5.2 10^3/uL (1.5-8.5); NEUTROPHILS % 48.7 % (36.0-66.0); PLATELET COUNT, AUTOMATED 428 10^3/uL (150-450); RED BLOOD COUNT 4.03 10^6/uL (4.00-5.40); WHITE BLOOD COUNT 10.6 10^3/uL (4.0-10.0)
[2020-10-20 13:21] LABS: ALBUMIN 3.3 GM/DL (3.2-5.2); BILIRUBIN,TOTAL 0.9 MG/DL (0.2-1.0); CALCIUM LEVEL 9.1 MG/DL (8.8-10.2); CREATININE FOR GFR 0.98 MG/DL (0.55-1.30); GLOMERULAR FILTRATION RATE 57.6 (>32); MAGNESIUM LEVEL 1.7 MG/DL (1.8-2.4); POTASSIUM SERUM 4.6 MEQ/L (3.5-5.1); TOTAL PROTEIN 6.9 GM/DL (6.4-8.2)
== END ==
LOC: M SFHCCLAY 07:00
PROVIDERS: ATTEND Family Medicine
DX: E83.42 Hypomagnesemia (principal); D69.6 Thrombocytopenia, unspecified

== ENCOUNTER → 2020-10-24 | Outpatient (CLI) | payer MEDICARE ==
--- NOTE | 2020-10-24 12:18 | REP ---
INDICATION: PNEUMONIA COMPARISON: 10/07/2020, 01/13/2017. TECHNIQUE: PA/Lateral FINDINGS: Lungs: Clear, no infiltrate. There are stable fibrotic changes in each lung base. Heart: Normal in size. Mediastinum: There is calcification of the thoracic aorta. The mediastinal silhouette is unchanged. Pleural angles: Unremarkable.. Bones and soft tissues: Unremarkable. IMPRESSION: No acute pulmonary disease. Stable chronic changes. <Electronically signed by Sumeet Ocasio > 10/24/20 [id number]
== END ==
LOC: M CLY 10:05
PROVIDERS: ATTEND Family Medicine
DX: J18.9 Pneumonia, unspecified organism (principal)

== ENCOUNTER → 2020-12-12 | Outpatient (REF) | payer MEDICARE | LOC: M SFHCCLAY 10:33 | PROVIDERS: ATTEND Physician Assistant | DX: R30.0 Dysuria (principal) ==

== ENCOUNTER → 2020-12-28 | Outpatient (REF) | payer MEDICARE ==
[2020-12-28 16:26] LABS: HEMATOCRIT 44.8 % (36.0-47.0); HEMOGLOBIN 14.5 g/dl (12.0-15.5); MEAN CORPUSCULAR HEMOGLOBIN 30.5 pg (27.0-33.0); MEAN CORPUSCULAR HGB CONC 32.4 g/dl (32.0-36.5); MEAN CORPUSCULAR VOLUME 94.1 fl (80.0-96.0); PLATELET COUNT, AUTOMATED 227 10^3/uL (150-450); RED BLOOD COUNT 4.76 10^6/uL (4.00-5.40); WHITE BLOOD COUNT 8.3 10^3/uL (4.0-10.0)
[2020-12-28 16:50] LABS: CALCIUM LEVEL 9.6 MG/DL (8.8-10.2); CREATININE FOR GFR 1.01 MG/DL (0.55-1.30); GLOMERULAR FILTRATION RATE 55.6 (>32); POTASSIUM SERUM 4.5 MEQ/L (3.5-5.1)
== END ==
LOC: M SFHCCLAY 12:29
PROVIDERS: ATTEND Family Medicine
DX: I11.9 Hypertensive heart disease without heart failure (principal); N39.41 Urge incontinence; E83.42 Hypomagnesemia

== ENCOUNTER → 2021-06-22 | Outpatient (REF) | payer MEDICARE ==
[~2021-06-22] MED LIST changes: -D31000TA2 PO; +VITA100093 PO
[2021-06-22 11:37] LABS: HEMATOCRIT 43.8 % (36.0-47.0); HEMOGLOBIN 14.7 g/dl (12.0-15.5); MEAN CORPUSCULAR HEMOGLOBIN 30.8 pg (27.0-33.0); MEAN CORPUSCULAR HGB CONC 33.6 g/dl (32.0-36.5); MEAN CORPUSCULAR VOLUME 91.8 fl (80.0-96.0); PLATELET COUNT, AUTOMATED 256 10^3/uL (150-450); RED BLOOD COUNT 4.77 10^6/uL (4.00-5.40); WHITE BLOOD COUNT 8.4 10^3/uL (4.0-10.0)
[2021-06-22 12:09] LABS: BILIRUBIN,TOTAL 0.7 MG/DL (0.2-1.0); CALCIUM LEVEL 9.9 MG/DL (8.8-10.2); CHOLESTEROL RISK RATIO 2.959 (<5); CREATININE FOR GFR 0.98 MG/DL (0.55-1.30); GLOMERULAR FILTRATION RATE 57.6 (>32); POTASSIUM SERUM 3.7 MEQ/L (3.5-5.1)
== END ==
LOC: M SFHCCLAY 08:04
PROVIDERS: ATTEND Family Medicine
DX: E78.2 Mixed hyperlipidemia (principal); I11.9 Hypertensive heart disease without heart failure; R42 Dizziness and giddiness

== ENCOUNTER → 2021-07-07 | Outpatient (REF) | payer MEDICARE | LOC: M WUC 17:30 | PROVIDERS: ATTEND Physician Assistant | DX: R30.0 Dysuria (principal) ==

== ENCOUNTER → 2021-08-01 | Outpatient (REF) | payer MEDICARE | LOC: M SFHCWAGY 16:55 | PROVIDERS: ATTEND Specialist | DX: N39.0 Urinary tract infection, site not specified (principal) ==

== ENCOUNTER → 2022-04-17 | Outpatient (REF) | payer MEDICARE ==
[2022-04-17 12:20] LABS: MAGNESIUM LEVEL 1.6 MG/DL (1.8-2.4)
[2022-04-17 12:22] LABS: ALBUMIN 3.7 G/DL (3.2-5.2); BILIRUBIN,TOTAL 0.8 MG/DL (0.3-1.2); CALCIUM LEVEL 9.5 MG/DL (8.3-10.6); CHOLESTEROL RISK RATIO 3.32 (<5); CREATININE FOR GFR 1.09 MG/DL (0.55-1.30); GLOMERULAR FILTRATION RATE 50.8 (>32); HDL CHOLESTEROL 70.3 MG/DL (>40); LDL CHOLESTEROL 128.7 MG/DL (<100); POTASSIUM SERUM 3.7 MMOL/L (3.5-5.1); TOTAL PROTEIN 6.8 G/DL (5.7-8.2)
[2022-04-17 12:28] LABS: TOTAL 25(OH) VITAMIN D 49.7 NG/ML (20.0-100.0)
== END ==
LOC: M SFHCCLAY 08:11
PROVIDERS: ATTEND Family Medicine
DX: E78.2 Mixed hyperlipidemia (principal); I11.9 Hypertensive heart disease without heart failure; E83.42 Hypomagnesemia; M81.0 Age-related osteoporosis without current pathological fracture

== ENCOUNTER → 2022-09-09 | Outpatient (REF) | payer MEDICARE ==
[2022-09-09 11:31] LABS: ALBUMIN 3.8 G/DL (3.2-5.2); BILIRUBIN,TOTAL 0.7 MG/DL (0.3-1.2); CALCIUM LEVEL 9.1 MG/DL (8.3-10.6); CHOLESTEROL RISK RATIO 3.13 (<5); CREATININE FOR GFR 1.13 MG/DL (0.55-1.30); GLOMERULAR FILTRATION RATE 48.6 (>32); HDL CHOLESTEROL 68.3 MG/DL (>40); LDL CHOLESTEROL 120.3 MG/DL (<100); MAGNESIUM LEVEL 1.8 MG/DL (1.8-2.4); NON-HDL-C 145.7 MG/DL; POTASSIUM SERUM 3.6 MMOL/L (3.5-5.1); TOTAL PROTEIN 6.7 G/DL (5.7-8.2)
[2022-09-09 11:33] LABS: APPEARANCE, URINE HAZY (CLEAR); BACTERIA, URINE AUTO NEGATIVE (NEGATIVE); BILIRUBIN, URINE AUTO NEGATIVE (NEGATIVE); BLOOD, URINE BLOOD NEGATIVE (NEGATIVE); COLOR, URINE AMBER (YELLOW); GLUCOSE, URINE (UA) AUTO NEGATIVE (NEGATIVE); KETONE, URINE AUTO NEGATIVE (NEGATIVE); LEUKOCYTE ESTERASE, URINE AUTO 3+ (NEGATIVE); MUCUS, URINE SMALL (NEGATIVE); NITRITE, URINE AUTO NEGATIVE (NEGATIVE); PROTEIN, URINE AUTO NEGATIVE (NEGATIVE); RBC, URINE AUTO 0 /HPF (0-3); SPECIFIC GRAVITY URINE AUTO 1.018 (1.002-1.035); SQUAMOUS EPITHELIAL CELL UR AU 2 /HPF (0-6); TOTAL 25(OH) VITAMIN D 42.4 NG/ML (20.0-100.0); UROBILINOGEN, URINE AUTO 0.2 mg/dL (0.0-2.0); WBC, URINE AUTO 30 /HPF (0-3)
== END ==
LOC: M SFHCCLAY 07:32
PROVIDERS: ATTEND Family Medicine
DX: E78.2 Mixed hyperlipidemia (principal); I11.9 Hypertensive heart disease without heart failure; E83.42 Hypomagnesemia; M85.80 Other specified disorders of bone density and structure, unspecified site; Z78.0 Asymptomatic menopausal state

== ENCOUNTER → 2022-09-24 | Outpatient (REF) | payer MEDICARE ==
[2022-09-24 17:47] LABS: AMORPHOUS SEDIMENT SMALL (NEGATIVE); APPEARANCE, URINE HAZY (CLEAR); BACTERIA, URINE AUTO NEGATIVE (NEGATIVE); BILIRUBIN, URINE AUTO NEGATIVE (NEGATIVE); BLOOD, URINE BLOOD NEGATIVE (NEGATIVE); COLOR, URINE AMBER (YELLOW); GLUCOSE, URINE (UA) AUTO NEGATIVE (NEGATIVE); KETONE, URINE AUTO NEGATIVE (NEGATIVE); LEUKOCYTE ESTERASE, URINE AUTO TRACE (NEGATIVE); MUCUS, URINE SMALL (NEGATIVE); NITRITE, URINE AUTO NEGATIVE (NEGATIVE); PROTEIN, URINE AUTO NEGATIVE (NEGATIVE); RBC, URINE AUTO 1 /HPF (0-3); SPECIFIC GRAVITY URINE AUTO 1.017 (1.002-1.035); SQUAMOUS EPITHELIAL CELL UR AU 0 /HPF (0-6); UROBILINOGEN, URINE AUTO 0.2 mg/dL (0.0-2.0); WBC, URINE AUTO 3 /HPF (0-3)
== END ==
LOC: M SFHCCLAY 10:52
PROVIDERS: ATTEND Family Medicine
DX: N30.00 Acute cystitis without hematuria (principal)

== ENCOUNTER → 2022-10-15 | Outpatient (CLI) | payer MEDICARE ==
[~2022-10-15] MED LIST changes: +GLUC1TAB58 PO
== END ==
LOC: M SOG 08:00
PROVIDERS: ATTEND Physician Assistant
DX: M25.531 Pain in right wrist (principal); M25.532 Pain in left wrist

== ENCOUNTER 2022-10-25 08:23 | Day surgery (SDC) | payer MEDICARE ==
[~2022-10-25] VITALS: Ht 157.5 cm; Wt 74.4 kg
[~2022-10-25 08:23] MED LIST changes: +LIDOCAINE W/EPINEPHRINE 1% 20ML VIAL XX ONE; +SODIUM BICARBONATE 8.4% INJ 50MEQ 50ML VIAL XX ONE
[2022-10-25] MEDS ORDERED: BACITRACIN OINTMENT 30GM TUBE As Ordered ONE (11:49)
[2022-10-25 12:30] VITALS: BP 137/68; TEMP 96.5; O2SAT 96
== END 2022-10-25 12:50 | disposition home or self-care (01) ==
LOC: M SDC 08:23
PROVIDERS: ATTEND Orthopaedic Surgery Hand Surgery
DX: G56.01 Carpal tunnel syndrome, right upper limb (principal)

== ENCOUNTER 2022-10-31 10:44 | Emergency (ER) | payer MEDICARE ==
[~2022-10-31] VITALS: Ht 157.5 cm; Wt 72.8 kg
[~2022-10-31 10:44] MED LIST changes: -LIDOCAINE W/EPINEPHRINE 1% 20ML VIAL XX ONE; -SODIUM BICARBONATE 8.4% INJ 50MEQ 50ML VIAL XX ONE
[2022-10-31 11:17] LABS: BASO # 0.1 10^3/uL (0.0-0.2); BASO % 0.6 % (0.0-1.0); EOS # 0.1 10^3/uL (0.0-0.5); EOS % 0.8 % (0.0-3.0); HEMATOCRIT 44.8 % (36.0-47.0); HEMOGLOBIN 14.8 g/dl (12.0-15.5); LYMPH # 2.7 10^3/uL (1.5-5.0); LYMPH % 28.1 % (24.0-44.0); MEAN CORPUSCULAR HEMOGLOBIN 30.5 pg (27.0-33.0); MEAN CORPUSCULAR VOLUME 92.4 fl (80.0-96.0); MONO # 0.7 10^3/uL (0.0-0.8); MONO % 7.3 % (2.0-8.0); NEUTROPHILS % 62.9 % (36.0-66.0); PLATELET COUNT, AUTOMATED 242 10^3/uL (150-450); RED BLOOD COUNT 4.85 10^6/uL (4.00-5.40); WHITE BLOOD COUNT 9.6 10^3/uL (4.0-10.0)
[2022-10-31 11:49] LABS: BLOOD UREA NITROGEN 25 MG/DL (9-23); CALCIUM LEVEL 9.6 MG/DL (8.3-10.6); CARBON DIOXIDE LEVEL 29 MMOL/L (20-31); CHLORIDE LEVEL 100 MMOL/L (98-107); CK-MB VALUE MASS < 1.0 NG/ML (<3.6); CPK CREATINE PHOSPHOKINASE 73 U/L (34-145); CREATININE FOR GFR 0.97 MG/DL (0.55-1.30); GLUCOSE, FASTING 100 MG/DL (74-106); MB/CK RELATIVE INDEX 1.36 (< OR =4); POTASSIUM SERUM 3.5 MMOL/L (3.5-5.1); SODIUM LEVEL 140 MMOL/L (136-145)
[2022-10-31] MEDS ORDERED: ISOVUE-370 76% 100ML VIAL As Ordered ONE (11:59)
[2022-10-31 12:21] LABS: ALBUMIN 3.9 G/DL (3.2-5.2); ALKALINE PHOSPHATASE 51 U/L (46-116); ALT/SGPT 15 U/L (7.0-40); AST/SGOT 15 U/L (<34); BILIRUBIN,DIRECT 0.2 MG/DL (<0.4); BILIRUBIN,TOTAL 0.9 MG/DL (0.3-1.2); TOTAL PROTEIN 6.9 G/DL (5.7-8.2)
[2022-10-31 12:23] LABS: FREE T4 1.15 NG/DL (0.89-1.76); THYROID STIMULATING HORMONE 3.563 uIU/ML (0.55-4.78)
[2022-10-31 13:04] LABS: CK-MB VALUE MASS < 1.0 NG/ML (<3.6)
[2022-10-31 13:06] LABS: CPK CREATINE PHOSPHOKINASE 70 U/L (34-145); MB/CK RELATIVE INDEX 1.42 (< OR =4)
[2022-10-31 13:30] VITALS: BP 152/88; TEMP 96; O2SAT 95
[2022-10-31] MEDS ORDERED: ASPI-255 PO (13:49)
[2022-10-31] MEDS ORDERED: NEXI40CA PO (13:50)
== END 2022-10-31 14:01 | disposition home or self-care (01) ==
LOC: M ED 10:44 → EDBD 10:44 → M ED 14:01
DX: R07.9 Chest pain, unspecified (principal); I10 Essential (primary) hypertension; F41.9 Anxiety disorder, unspecified; M54.9 Dorsalgia, unspecified; Z87.891 Personal history of nicotine dependence; Z88.0 Allergy status to penicillin; Z88.8 Allergy status to other drugs, medicaments and biological substances; Z79.899 Other long term (current) drug therapy
CPT/HCPCS: 36415; 71045; 71275; 80048; 80076; 82550; 82553; 84439; 84443; 84484; 85025; 93005; 93041; 94760; 99285; Q9967

== ENCOUNTER → 2022-12-05 | Outpatient (REF) | payer MEDICARE ==
[~2022-12-05] MED LIST changes: +ASPI-255 PO; +NEXI40CA PO
== END ==
LOC: M SFHCWAGY 13:04
PROVIDERS: ATTEND Specialist
DX: N39.0 Urinary tract infection, site not specified (principal)

== ENCOUNTER → 2023-10-15 | Outpatient (REF) | payer MEDICARE ==
[2023-10-15 13:51] LABS: ALBUMIN 3.9 G/DL (3.2-5.2); BILIRUBIN,TOTAL 1.1 MG/DL (0.3-1.2); CALCIUM LEVEL 10.3 MG/DL (8.3-10.6); CHOLESTEROL RISK RATIO 3.2 (<5); CREATININE FOR GFR 1.16 MG/DL (0.55-1.30); HDL CHOLESTEROL 69.6 MG/DL (>40); LDL CHOLESTEROL 124.8 MG/DL (<100); NON-HDL-C 153.4 MG/DL; POTASSIUM SERUM 3.2 MMOL/L (3.5-5.1); TOTAL PROTEIN 6.8 G/DL (5.7-8.2)
[2023-10-15 13:52] LABS: HEMATOCRIT 43.9 % (36.0-47.0); HEMOGLOBIN 14.5 g/dl (12.0-15.5); MEAN CORPUSCULAR HEMOGLOBIN 30.9 pg (27.0-33.0); MEAN CORPUSCULAR VOLUME 93.4 fl (80.0-96.0); PLATELET COUNT, AUTOMATED 234 10^3/uL (150-450); WHITE BLOOD COUNT 7.7 10^3/uL (4.0-10.0)
== END ==
LOC: M SFHCCLAY 07:31
PROVIDERS: ATTEND Family Medicine
DX: I11.9 Hypertensive heart disease without heart failure (principal); E83.42 Hypomagnesemia; E78.2 Mixed hyperlipidemia; I70.0 Atherosclerosis of aorta; M85.80 Other specified disorders of bone density and structure, unspecified site

== ENCOUNTER → 2023-11-21 | Outpatient (REF) | payer MEDICARE ==
[2023-11-21 11:42] LABS: CALCIUM LEVEL 9.5 MG/DL (8.3-10.6); CREATININE FOR GFR 1.19 MG/DL (0.55-1.30); GLOMERULAR FILTRATION RATE 45.7 (>32); POTASSIUM SERUM 3.6 MMOL/L (3.5-5.1)
== END ==
LOC: M SFHCCLAY 07:38
PROVIDERS: ATTEND Family Medicine
DX: I11.9 Hypertensive heart disease without heart failure (principal)

== ENCOUNTER → 2024-01-09 | Outpatient (CLI) | payer MEDICARE | LOC: M PLAIMG 09:40 | PROVIDERS: ATTEND Internal Medicine Cardiovascular Disease | DX: I71.21 Aneurysm of the ascending aorta, without rupture (principal); I35.1 Nonrheumatic aortic (valve) insufficiency; R94.31 Abnormal electrocardiogram [ECG] [EKG] ==

== ENCOUNTER → 2024-04-26 | Outpatient (REF) | payer MEDICARE ==
[2024-04-26 14:17] LABS: ALBUMIN 3.9 G/DL (3.2-5.2); BILIRUBIN,TOTAL 0.7 MG/DL (0.3-1.2); CALCIUM LEVEL 9.8 MG/DL (8.3-10.6); CHOLESTEROL RISK RATIO 3.01 (<5); CREATININE FOR GFR 1.12 MG/DL (0.55-1.30); HDL CHOLESTEROL 77.3 MG/DL (>40); LDL CHOLESTEROL 128.3 MG/DL (<100); MAGNESIUM LEVEL 1.9 MG/DL (1.8-2.4); NON-HDL-C 155.7 MG/DL; POTASSIUM SERUM 3.8 MMOL/L (3.5-5.1); TOTAL PROTEIN 7.4 G/DL (5.7-8.2)
[2024-04-26 14:31] LABS: HEMOGLOBIN A1c 5.3 % (4.0-6.0)
== END ==
LOC: M SFHCCLAY 08:32
PROVIDERS: ATTEND Physician Assistant
DX: E78.2 Mixed hyperlipidemia (principal); E83.42 Hypomagnesemia; I11.9 Hypertensive heart disease without heart failure; M85.80 Other specified disorders of bone density and structure, unspecified site; N39.3 Stress incontinence (female) (male); I77.810 Thoracic aortic ectasia; N18.31 Chronic kidney disease, stage 3a; Z79.899 Other long term (current) drug therapy

== ENCOUNTER → 2024-10-06 | Outpatient (REF) | payer MEDICARE ==
[~2024-10-06] MED LIST changes: +LISI40TA10 PO; -LISI40TA4 PO
[2024-10-06 13:36] LABS: ALT/SGPT 15.0 U/L (7.0-40); AST/SGOT 20.0 U/L (<34); CALCIUM LEVEL 8.9 MG/DL (8.3-10.6); CARBON DIOXIDE LEVEL 29.0 MMOL/L (20-31); CHLORIDE LEVEL 101.0 MMOL/L (98-107); CREATININE FOR GFR 1.33 MG/DL (0.55-1.30); GLOMERULAR FILTRATION RATE 38.5 (>32); MAGNESIUM LEVEL 1.8 MG/DL (1.8-2.4); POTASSIUM SERUM 3.7 MMOL/L (3.5-5.1); SODIUM LEVEL 143.0 MMOL/L (136-145)
== END ==
LOC: M SFHCCLAY 09:39
PROVIDERS: ATTEND Physician Assistant
DX: E78.2 Mixed hyperlipidemia (principal); E83.42 Hypomagnesemia; I11.9 Hypertensive heart disease without heart failure; M85.80 Other specified disorders of bone density and structure, unspecified site; N39.3 Stress incontinence (female) (male); I77.810 Thoracic aortic ectasia; N18.31 Chronic kidney disease, stage 3a; Z23 Encounter for immunization; R30.0 Dysuria

== ENCOUNTER → 2024-10-26 | Outpatient (REF) | payer MEDICARE ==
[2024-10-26 12:18] LABS: ESTIMATED AVERAGE GLUCOSE 108.0 MG/DL (60-110)
[2024-10-26 12:19] LABS: ALT/SGPT 14.0 U/L (7.0-40); AST/SGOT 19.0 U/L (<34); CALCIUM LEVEL 9.6 MG/DL (8.3-10.6); CARBON DIOXIDE LEVEL 30.0 MMOL/L (20-31); CHLORIDE LEVEL 102.0 MMOL/L (98-107); CHOLESTEROL LEVEL 192.0 MG/DL (<200); CHOLESTEROL RISK RATIO 3.0 (<5); CREATININE FOR GFR 1.28 MG/DL (0.55-1.30); GLOMERULAR FILTRATION RATE 40.3 (>32); LDL CHOLESTEROL 103.2 MG/DL (<100); NON-HDL-C 128.0 MG/DL; POTASSIUM SERUM 3.9 MMOL/L (3.5-5.1); SODIUM LEVEL 143.0 MMOL/L (136-145); TRIGLYCERIDES LEVEL 124.0 MG/DL (<150)
== END ==
LOC: M SFHCCLAY 07:56
PROVIDERS: ATTEND Physician Assistant
DX: E78.2 Mixed hyperlipidemia (principal); N18.31 Chronic kidney disease, stage 3a; Z79.899 Other long term (current) drug therapy

== ENCOUNTER → 2024-12-23 | Outpatient (REF) | payer MEDICARE | LOC: M SFHCCLAY 10:36 | PROVIDERS: ATTEND Physician Assistant | DX: R30.0 Dysuria (principal) ==

== ENCOUNTER → 2025-01-10 | Outpatient (REF) | payer MEDICARE ==
[2025-01-10 12:54] LABS: APPEARANCE, URINE HAZY (CLEAR); BACTERIA, URINE AUTO NEGATIVE (NEGATIVE); BILIRUBIN, URINE AUTO NEGATIVE (NEGATIVE); BLOOD, URINE BLOOD NEGATIVE (NEGATIVE); GLUCOSE, URINE (UA) AUTO NEGATIVE (NEGATIVE); KETONE, URINE AUTO NEGATIVE (NEGATIVE); LEUKOCYTE ESTERASE, URINE AUTO NEGATIVE (NEGATIVE); MUCUS, URINE SMALL (NEGATIVE); NITRITE, URINE AUTO NEGATIVE (NEGATIVE); PROTEIN, URINE AUTO NEGATIVE (NEGATIVE); RBC, URINE AUTO 0 /HPF (0-3); SPECIFIC GRAVITY URINE AUTO 1.017 (1.002-1.035); SQUAMOUS EPITHELIAL CELL UR AU 0 /HPF (0-6); UROBILINOGEN, URINE AUTO 0.2 mg/dL (0.0-2.0); WBC, URINE AUTO 7 /HPF (0-3)
== END ==
LOC: M SFHCCLAY 08:37
PROVIDERS: ATTEND Physician Assistant
DX: N30.01 Acute cystitis with hematuria (principal)

== ENCOUNTER → 2025-01-12 | Outpatient (REF) | payer MEDICARE | LOC: M SFHCCLAY 11:48 | PROVIDERS: ATTEND Physician Assistant | DX: R30.0 Dysuria (principal) ==